=== PATIENT | male | born 1955 | race Caucasian/White ===

== ENCOUNTER 2018-08-24 09:58 | Outpatient (REF) | payer MEDICAID, SELFPAY ==
[2018-08-24 21:46] LABS: ALT 38 U/L (12-78); AST 25 U/L (15-37); Alkaline Phosphatase 77 U/L (46-116); Anion Gap 7.7 mmol/L (3-11); BUN 16 mg/dL (7-18); Bilirubin, Total 0.5 mg/dL (0.2-1.0); CO2 28.3 mmol/L (21.0-32.0); CREATININE 0.98 mg/dL (0.70-1.30); Calcium 9.5 mg/dL (8.5-10.1); Chloride 107 mmol/L (98-107); Cholesterol 226 mg/dL (50-200); Glucose 95 mg/dL (70-100); HDL Cholesterol 60 mg/dL (40-60); LDL CHOLESTEROL 135 mg/dL (<100); Potassium 4.1 mmol/L (3.5-5.1); Sodium 143 mmol/L (136-145); Total Protein 7.1 g/dL (6.4-8.2); Triglyceride 147 mg/dL (30-150)
== END 2018-08-24 10:18 ==
LOC: NCHCN 09:58
PROVIDERS: PCP Physician Assistant Medical; Visit Provider Physician Assistant Medical
DX: E78.5 Hyperlipidemia, unspecified (principal); I10 Essential (primary) hypertension
CPT/HCPCS: 80053; 80061; 83721

== ENCOUNTER 2018-12-04 08:33 | Outpatient (REF) | payer MEDICAID, SELFPAY ==
[2018-12-04 22:16] LABS: ALT 35 U/L (12-78); AST 22 U/L (15-37); Albumin 4.2 g/dL (3.4-5.0); Alkaline Phosphatase 79 U/L (46-116); Anion Gap 11.1 mmol/L (3-11); BUN 16 mg/dL (7-18); Bilirubin, Total 0.5 mg/dL (0.2-1.0); CO2 24.9 mmol/L (21.0-32.0); CREATININE 0.87 mg/dL (0.70-1.30); Calcium 9.3 mg/dL (8.5-10.1); Calculated LDL 115 mg/dL; Chloride 107 mmol/L (98-107); Cholesterol 194 mg/dL (50-200); Glucose 97 mg/dL (70-100); HDL Cholesterol 58 mg/dL (40-60); Potassium 4.4 mmol/L (3.5-5.1); Sodium 143 mmol/L (136-145); Total Protein 7.4 g/dL (6.4-8.2); Triglyceride 109 mg/dL (30-150)
== END 2018-12-04 08:53 ==
LOC: NCHCN 08:33
PROVIDERS: PCP Physician Assistant Medical; Visit Provider Physician Assistant Medical
DX: E78.5 Hyperlipidemia, unspecified (principal)
CPT/HCPCS: 80053; 80061; 83721

== ENCOUNTER 2019-04-09 08:54 | Outpatient (REF) | payer MEDICAID, SELFPAY ==
[2019-04-09 22:14] LABS: Calculated LDL 116 mg/dL; Cholesterol 201 mg/dL (<200); HDL Cholesterol 58 mg/dL (40-60); Triglyceride 139 mg/dL (<150)
== END 2019-04-09 09:14 ==
LOC: NCHCN 08:54
PROVIDERS: PCP Physician Assistant Medical; Visit Provider Physician Assistant Medical
DX: E78.5 Hyperlipidemia, unspecified (principal)
CPT/HCPCS: 80061

== ENCOUNTER 2020-01-04 09:43 | Outpatient (REF) | payer MEDICAID, SELFPAY ==
[2020-01-05 00:33] LABS: ALT 34 U/L (16-63); AST 20 U/L (15-37); Albumin 4.1 g/dL (3.4-5.0); Alkaline Phosphatase 71 U/L (46-116); Anion Gap 16.1 mmol/L (3-11); BUN 15 mg/dL (7-18); Bilirubin, Total 0.6 mg/dL (0.2-1.0); CO2 20.9 mmol/L (21.0-32.0); CREATININE 0.91 mg/dL (0.70-1.30); Calcium 9.7 mg/dL (8.5-10.1); Calculated LDL 132 mg/dL (<100); Chloride 103 mmol/L (98-107); Cholesterol 213 mg/dL (<200); Glucose 87 mg/dL (74-106); HDL Cholesterol 58 mg/dL (40-60); Potassium 4.3 mmol/L (3.5-5.1); Sodium 140 mmol/L (136-145); Total Protein 7.3 g/dL (6.4-8.2); Triglyceride 117 mg/dL (<150)
== END 2020-01-04 10:03 ==
LOC: NCHCN 09:43
PROVIDERS: PCP Physician Assistant Medical; Visit Provider Physician Assistant Medical
DX: I10 Essential (primary) hypertension (principal); E78.5 Hyperlipidemia, unspecified
CPT/HCPCS: 80053; 80061

== ENCOUNTER 2020-01-16 15:59 | Outpatient (REF) | payer MEDICAID, SELFPAY | END 2020-01-16 16:19 | LOC: NCHCN 15:59 | PROVIDERS: PCP Physician Assistant Medical; Visit Provider Physician Assistant Medical | DX: R10.2 Pelvic and perineal pain (principal) | CPT/HCPCS: 87086 ==

== ENCOUNTER 2021-01-20 10:58 | Outpatient (REF) | payer MEDICAID, SELFPAY ==
[2021-01-20 19:20] LABS: ALT 37 U/L (16-63); AST 25 U/L (15-37); Albumin 4.2 g/dL (3.4-5.0); Alkaline Phosphatase 84 U/L (46-116); Anion Gap 7.4 mmol/L (3-11); BUN 12 mg/dL (7-18); Bilirubin, Total 0.5 mg/dL (0.2-1.0); CO2 29.6 mmol/L (21.0-32.0); CREATININE 1.1 mg/dL (0.70-1.30); Calcium 9.7 mg/dL (8.5-10.1); Calculated LDL 147 mg/dL (<100); Chloride 104 mmol/L (98-107); Cholesterol 237 mg/dL (<200); Glucose 96 mg/dL (74-106); HDL Cholesterol 59 mg/dL (40-60); Potassium 4.8 mmol/L (3.5-5.1); Sodium 141 mmol/L (136-145); Total Protein 7.6 g/dL (6.4-8.2); Triglyceride 159 mg/dL (<150)
== END 2021-01-20 10:59 | disposition home or self-care (01) ==
LOC: NCHCN 10:58
PROVIDERS: PCP Physician Assistant Medical; Visit Provider Physician Assistant Medical
DX: I10 Essential (primary) hypertension (principal); E78.5 Hyperlipidemia, unspecified
CPT/HCPCS: 80053; 80061

== ENCOUNTER 2021-04-20 19:10 | Outpatient (REF) | payer MEDICAID, SELFPAY ==
[2021-04-20 19:07] LABS: ALT 38 U/L (16-63); AST 24 U/L (15-37); Albumin 4.1 g/dL (3.4-5.0); Alkaline Phosphatase 76 U/L (46-116); Anion Gap 10.2 mmol/L (3-11); BUN 20 mg/dL (7-18); Bilirubin, Total 0.4 mg/dL (0.2-1.0); CO2 25.8 mmol/L (21.0-32.0); Calcium 9.4 mg/dL (8.5-10.1); Calculated LDL 107 mg/dL (<100); Chloride 105 mmol/L (98-107); Cholesterol 192 mg/dL (<200); Glucose 93 mg/dL (74-106); HDL Cholesterol 67 mg/dL (40-60); Potassium 4.1 mmol/L (3.5-5.1); Sodium 141 mmol/L (136-145); Total Protein 7.5 g/dL (6.4-8.2); Triglyceride 91 mg/dL (<150)
== END 2021-04-20 19:11 | disposition home or self-care (01) ==
LOC: NCHCN 19:10
PROVIDERS: PCP Physician Assistant Medical; Visit Provider Physician Assistant Medical
DX: E78.5 Hyperlipidemia, unspecified (principal); Z00.8 Encounter for other general examination
CPT/HCPCS: 80053; 80061

== ENCOUNTER 2022-07-14 16:12 | Outpatient (REF) | payer MEDICARE, MEDICAID, SELFPAY ==
[2022-07-14 15:17] LABS: ALT 36 U/L (16-63); AST 21 U/L (15-37); Albumin 3.9 g/dL (3.4-5.0); Alkaline Phosphatase 94 U/L (46-116); Anion Gap 8.5 mmol/L (3-11); BUN 19 mg/dL (7-18); Bilirubin, Total 0.2 mg/dL (0.2-1.0); CO2 27.5 mmol/L (21.0-32.0); Calculated LDL 124 mg/dL (<100); Chloride 110 mmol/L (98-107); Cholesterol 212 mg/dL (<200); Estimated GFR 83.52 (mL/min/1.73m2); Glucose 92 mg/dL (74-106); HDL Cholesterol 58 mg/dL (40-60); Potassium 4.5 mmol/L (3.5-5.1); Sodium 146 mmol/L (136-145); Total Protein 7.6 g/dL (6.4-8.2); Triglyceride 154 mg/dL (<150)
== END 2022-07-14 16:13 | disposition home or self-care (01) ==
LOC: NCHCN 16:12
PROVIDERS: PCP Physician Assistant Medical; Visit Provider Family Medicine
DX: E78.5 Hyperlipidemia, unspecified (principal)
CPT/HCPCS: 80053; 80061

== ENCOUNTER 2023-02-15 11:49 | Outpatient (REF) | payer MEDICARE, SELFPAY ==
[2023-02-15 16:01] LABS: ALT 45 U/L (16-63); AST 28 U/L (15-37); Albumin 3.8 g/dL (3.4-5.0); Alkaline Phosphatase 78 U/L (46-116); Anion Gap 7.7 mmol/L (3-11); BUN 19 mg/dL (7-18); Bilirubin, Total 0.5 mg/dL (0.2-1.0); CO2 26.3 mmol/L (21.0-32.0); Calcium 9.5 mg/dL (8.5-10.1); Calculated LDL 81 mg/dL (<100); Chloride 106 mmol/L (98-107); Cholesterol 181 mg/dL (<200); Estimated GFR 83.01 (mL/min/1.73m2); Glucose 106 mg/dL (74-106); HDL Cholesterol 75 mg/dL (40-60); Sodium 140 mmol/L (136-145); Total Protein 7.8 g/dL (6.4-8.2); Triglyceride 126 mg/dL (<150)
== END 2023-02-15 11:50 | disposition home or self-care (01) ==
LOC: NCHCN 11:49
PROVIDERS: PCP Physician Assistant Medical; Visit Provider Physician Assistant Medical
DX: E78.5 Hyperlipidemia, unspecified (principal)
CPT/HCPCS: 80053; 80061

== ENCOUNTER 2024-04-16 11:41 | Outpatient (REF) | payer MEDICARE, SELFPAY ==
--- OUTSIDE RECORDS SUMMARY | 2024-04-16 11:43 | XMS_ITS | Referral Summary ---
Author Organization [facility] Address [address] [place] [address] Care Team Providers Care Entry Level Account Manager Name Role Phone Mickie Byrne PA-C Primary Care Provider + Social History Tobacco Use Types Packs/Day Years Used Date Smoking Tobacco: Never Assessed Interpersonal Safety Answer Date Record ed Physically Hurt Never 12/16/2019 Verbally Threaten Not on file 12/16/2019 Sex and Gender Information Value Date Recorded Sex Assigned at Not on file Legal Sex Male 18:50 EST Gender Identity Not on file Sexual Orientation Not on file Plan of Treatment Not on file Care Teams Entry Level Account Manager Relationship Specialty Start Date End Date Mickie Byrne PA-C [address] [place] [address] PCP - General 09/02/17
--- OUTSIDE RECORDS SUMMARY | 2024-04-16 11:43 | XMS_ITS | Encounter Summary ---
Author Organization [facility] Address [facility] [place] [address] Care Team Providers Care Printing Estimator Name Role Phone None Primary Care Provider Unavailabl e Encounter Details Date Type Department Care Team (Late st Contact Info) Description 11/19/2020 Telephone Dermatology at [facility] [address] [place] [address] Rohan Osborne MD [facility] [address] [place] [address] Social History Tobacco Use Types Packs/Day Years Used Date Smoking Tobacco: Every Day Cigarettes Smokeless Tobacco: Never Sex and Gender Information Value Date Recorded Sex Assigned at Not on file Gender Identity Not on file Sexual Orientation Not on file documented as of this encounter Miscellaneous Notes * Telephone Encounter - Em SmithMANDY - 11/19/2020 2:15 PM EDTSummary: Pathology results. Spoke with patient regarding his biopsy results. Per Dr. Rider the lesion on his ear showed a BCC. Discussed BCCs with patient. Discussed with patient Dr. Rider's recommendations for treatment. Iexplained EDC and Mohs procedures in detail for the patient. He had no questions regarding either. He prefers to do the EDC. Will send message to glue mounter operator to schedule procedure with Dr. Rider or one of his colleagues. Discussed the pathology of the right cheek . 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 No further treatment is needed. 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 He understands no further treatment is needed. * Telephone Encounter - Anny Estrella - 11/19/2020 1:56 PM EDT Uli Barone is returning your call, best number to reach the patient back is [phone]. documented in this encounter Plan of Treatment Not on file documented as of this encounter Visit Diagnoses Not on filedocumented in this encounter Care Teams Printing Estimator Relationship Specialty Start Date End Date None None PCP - General 01/10/20 documented as of this encounter
--- OUTSIDE RECORDS SUMMARY | 2024-04-16 11:43 | XMS_ITS | Encounter Summary ---
Author Organization [facility] Address [address] [place] [address] Care Team Providers Care Community Outreach Worker Name Role Phone Unknown, Provider Primary Care Provider Unava ilable Encounter Details Date Type Department Care Team (Latest Contact Info) Description 08/30/2017 7:39 EDT - 08/30/2017 23:59 EDT Hospital Encounter [address] [address] Unknown, ProviderMD Discharge Disposition: Home or Self Care Social History Tobacco Use Types Packs/Day Years Used Date Smoking Tobacco: Never Assessed Sex and Gender Information Value Date Recorded Sex Assigned at Not on file Legal Sex Male 18:50 EST Gender Identity Not on file Sexual Orientation Not on file documented as of this encounter Discharge Disposition Disposition Code Departure Means Destination Home or Self Long Term documented in this encounter Plan of Treatment Not on file documented as of this encounter Visit Diagnoses Not on filedocumented in this encounter Care Teams Community Outreach Worker Relationship Specialty Start Date End Date Unknown, Provider, PCP - General 05/31/17 09/01/17 documented as of this encounter
--- OUTSIDE RECORDS SUMMARY | 2024-04-16 11:43 | XMS_ITS | Clinical Summary ---
Author Organization [facility] Address [address] [place] [address] Care Team Providers Care Mold Dresser Name Role Phone Mickie Byrne PA-C Primary [...] Orientation Not on file Plan of Treatment Health Maintenance Due Date Last Done Comments Hepatitis C Screen 1955 Fall Risk Screening 2022 COVID-19 Vaccine (2023- season) 2024 RSV Immunization ( o r 60+ Years) (1 - 1-dose 75+ series) 02/14/2032 Care Teams Mold Dresser Relationship Specialty Start Date End Date Mickie Byrne PA-C [address] [place] [phone] PCP - General 09/02/17
--- OUTSIDE RECORDS SUMMARY | 2024-04-16 11:43 | XMS_ITS | Encounter Summary ---
Author Organization [facility] Address [address] [place] [address] Care Team Providers Care Integration Aide Name Role Phone Unknown, Provider Primary Care Provider Unava ilable Encounter Details Date Type Department Care Team (Late st Contact Info) Description 04/06/2010 Results Only [facility] Laboratory Services - [facility] ([facility] [address], [place] [id number] Gloria Gómez MD [facility] [address] [place] [address] Social History Tobacco Use Types Packs/Day Years Used Date Smoking Tobacco: Never Assessed Sex and Gender Information Value Date Recorded Sex Assigned at Not on file Legal Sex Male 18:50 EST Gender Identity Not on file Sexual Orientation Not on file documented as of this encounter Plan of Treatment Not on file documented as of this encounter Procedures Procedure Name Priority Date/Time Associated Diagnosis Comments SURGICAL PATHOLOGY Routine 04/06/2010 0:00 EST documented in this encounter Results * SURGICAL PATHOLOGY (04/06/2010 0:00 EST) Pathology Report: SURGICAL PATHOLOGY REPORT ? Reports generated via electronic interface contain original data; ? however they are lacking the format of the original report. ? Caution should be taken when reading/interpreti ng unformatted reports. ? Name: ? PABLO, STARLA R ? Accession #: ? [id number] ? : ? 1955 (Age: 55) ??M ? Collect Date: ? 04/06/2010 ? Location: ? [facility] ? Receive Date: ? 04/07/2010 ? Provider: GLORIA READY MD ? Copy to: ? Final Pathologic Diagnosis: ? Skin of forearm, left anterior, punch biopsy: ? 1. ?Basal cell carcinoma, superficial and nodular types. ? - Lesion extends to peripheral edges of biopsy specimen. ? Microscopic Description: ? Emanating from the epidermis and present within the dermis are irregularly shaped islands of atypical basal cells. The basal cells have scant cytoplasm and round dark nuclei. ??Mitotic figures and apoptotic bodies are evident. ??The ? nuclei at the periphery of the islands have a palisaded arrangement. ??The ? islands are associated with a fibromyxoid stroma and there is cleft formation ?? between some of the islands and stroma. ??(Dr. Nieto)/[facility] ? Document reviewed and electronically signed by: ? LUKAS NIETO MD ? Report ??Date: 04/08/2010 12:51 ? By the signature above, the attending physician certifies that he/she has ? personally conducted a gross and/or microscopic examination of the described ? specimens and rendered or confirmed the above diagnosis. ? Specimen(s) Received: ? L ant forearm 5.0 mm punch biopsy of non-healing scab/lesion ? Clinical History: ? 1.5 x 1.0 cm scabbed non-healing raised lesion in high sun-exposed man ? Gross Description: ? Received in formalin labelled Pablo, Starla and L ant forearm is a ?? punch biopsy of yost to brown and crusted skin measuring 0.5 cm in diameter and ?? 0.5 cm in thickness. ??The specimen is bisected and submitted entirely in one ? cassette. (A. Jostin)/mpl ? End of Report ? [facility] 04/06/2010 04/07/2010 8:3 6 EST us Gloria Gómez MD PATHOLOGY ORDERABLES Final Resul t [facility] [address] [place] [address] documented in this encounter Visit Diagnoses Not on filedocumented in this encounter Care Teams Integration Aide Relationship Specialty Start Date End Date Unknown, Provider, PCP - General 04/07/10 04/07/10 documented as of this encounter
--- OUTSIDE RECORDS SUMMARY | 2024-04-16 11:43 | XMS_ITS | Encounter Summary ---
Author Organization [facility] Address [address] [place] [address] Care Team Providers Care Counselor Aid Name Role Phone Unknown, Provider Primary Care Provider Unava ilable Encounter Details Date Type Department Care Team (Late st Contact Info) Description 08/30/2017 Results Only [facility] [phone] Kimberley Garvin PA-C [address] [place] [address] Social History Tobacco Use Types Packs/Day Years [...] Date/Time Associated Diagnosis Comments SURGICAL PATHOLOGY Routine 08/30/2017 16 :05 EDT documented in this encounter Results * SURGICAL PATHOLOGY (08/30/2017 16:05 EDT) Pathology Report: SURGICAL PATHOLOGY REPORT Reports generated via electronic interface contain original data; however they are lacking the format of the original report. Caution should be taken when reading/interpreting unformatted reports. Name: ? STARLA SHAH ? Accession #: ? [id number] ? : ? 1955 (Age: 62) ??M ? Collect Date: ? 08/30/2017 ? Location: ? [facility] ? Receive Date: ? 08/31/2017 ? Provider: KIMBERLEY GARVIN PAC Copy to: ? Final Pathologic Diagnosis: SKIN OF MATA, RIGHT ANTERIOR LATERAL, PUNCH BIOPSY: - Subacute spongiotic dermatitis. See comment. Comment: The biopsy primarily shows features of spongiotic (eczematous) dermatitis with epidermal hyperplasia and scale formation. There are areas of erythrocyte extravasation but no evidence of vasculitis. Although the extravasation raises the possibility of purpuric dermatitis, the epidermal changes are more characteristic of an eczematous process. (Dr. Reyna)/jds Microscopic Description: Sections consist of a bisected punch biopsy of skin to the deep reticular dermis. The stratum corneum has hyperkeratosis and parakeratosis. The epidermis is acanthotic with an irregular rete ridge pattern. There are foci of spongiosis with lymphomononuclear cell exocytosis. The superficial dermis has a patchy perivascular lymphomononuclear infiltrate. The vessels have reactive changes and there are areas of erythrocyte extravasation. No fibrinoid mural necrosis or thrombus formation is evident. Deeper sections have similar features. (Dr. Reyna)/jds Document reviewed and electronically signed by: GHASSAN REYNA MD Report ??Date: 09/01/2017 16:39 By the signature above, the attending physician certifies that he/she has personally conducted a gross and/or microscopic examination of the described specimens and rendered or confirmed the above diagnosis. Specimen(s) Received: 5.0 mm punch biopsy Rt anterior lateral mata Clinical History: Blanchable red confluent macules scattered on bilateral legs and ankles; no drainahge Gross Description: ? Received in formalin labelled with proper patient identification (initials L, R) and R anterior lateral mata is a punch biopsy of yost-white skin (0.5 cm in diameter and 0.3 cm in thickness). The margins are inked blue. The specimen is bisected and entirely submitted in 1. JUANCARLOS Garduno ([facility]) 08/31/2017 4:25 PM End of Report [facility] 08/30/2017 16:0 5 EDT 08/31/2017 16:05 EDT us Kimberley Garvin PA-C PATHOLOGY ORDERABLES Irlanda ruby Result [facility] [address] [place] [address] documented in this encounter Visit Diagnoses Not on filedocumented in this encounter Care Teams Counselor Aid Relationship Specialty Start Date End Date Unknown, Provider, PCP - General 05/31/17 09/01/17 documented as of this encounter
--- OUTSIDE RECORDS SUMMARY | 2024-04-16 11:43 | XMS_ITS | Encounter Summary ---
Author Organization [facility] Address [address] [place] [address] Care Team Providers Care Groover Operator Name Role Phone Darling Gómez MD Primary Care Provider [phone] Encounter Details Date Type Department Care Team (Late st Contact Info) Description 04/04/2017 Results Only [facility] [phone] Brooks Lopez, [address] [place], [place] [address] Social History Tobacco Use Types Packs/Day Years [...] Date/Time Associated Diagnosis Comments SURGICAL PATHOLOGY Routine 04/04/2017 9:40 EST documented in this encounter Results * SURGICAL PATHOLOGY (04/04/2017 9:40 EST) Pathology Report: SURGICAL PATHOLOGY REPORT Reports generated via electronic interface contain original data; however they are lacking the format of the original report. Caution should be taken when reading/interpret ing unformatted reports. Name: ? STARLA SHAH ? Accession #: ? [id number] ? : ? 1955 (Age: 62) ??M ? Collect Date: ? 04/04/2017 ? Location: ? [facility] ? Receive Date: ? 04/05/2017 ? Provider: BROOKS LOPEZ DO Copy to: LESLEY ALONZO PA-C ? Final Pathologic Diagnosis: A. ??SKIN OF FACE, LEFT BUDDHIST, SHAVE BIOPSY: - Basal cell carcinoma, nodular type, involving the biopsy base. B. ??SKIN OF EAR, LEFT MID HELIX, SHAVE BIOPSY: - Basal cell carcinoma, nodular type, involving the biopsy base. ?? Document reviewed and electronically signed by: ELENITA BLEDSOE MD Report ??Date: 04/06/2017 12:43 By the signature above, the attending physician certifies that he/she has personally conducted a gross and/or microscopic examination of the described specimens and rendered or confirmed the above diagnosis. Specimen(s) Received: A. ??Left rastafari B. ??Left mid helix Clinical History: Enlarging, nonhealing skin lesion(s); clinical diagnosis code: ??D49.2 Gross Description: A. ?Received in formalin labelled with proper patient identification (initials L, R) and left rastafari is a 0.8 x 0.8 x 0.2 cm circular shave of yost-roy to yellow skin. The margin is inked blue. The tissue is trisected and entirely submitted in A1. B. ?Received in formalin labelled with proper patient identification (initials L, R) and left mid helix is a 0.7 x 0.5 x 0.1 cm circular shave of yost-roy skin. The margin is inked blue. The specimen is bisected and entirely submitted in B1. JUANCARLOS Garduno ([facility]) 04/05/2017 9:56 AM End of Report [facility] 04/04/2017 9:40 EST 04/05/2017 9:40 EST us Brooks Lopez DO PATHOLOGY ORDERABLES Fi nal Result [facility] [address] [phone] documented in this encounter Visit Diagnoses Not on filedocumented in this encounter Care Teams Groover Operator Relationship Specialty Start Date End Date Darling Gómez MD PCP - General 03/22/14 04/05/17 documented as of this encounter
--- OUTSIDE RECORDS SUMMARY | 2024-04-16 11:43 | XMS_ITS | Encounter Summary ---
Author Organization [facility] Address [address] [place] [address] Care Team Providers Care Tier In Name Role Phone Mickie Byrne PA-C Primary Care Provider + Encounter Details Date Type Department Care Team (Latest Contact Info) Description 05/26/2017 7:47 EST - 05/26/2017 23:59 EST Hospital Encounter [address] [address] Unknown, Provider, MD Discharge Disposition: Home or Self Care Social History Tobacco Use Types Packs/Day Years Used Date Smoking Tobacco: Never Assessed Sex and Gender Information Value Date Recorded Sex Assigned at Not on file Legal Sex Male 18:50 EST Gender Identity Not on file Sexual Orientation Not on file documented as of this encounter Discharge Disposition Disposition Code Departure Means Destination Home or Self Half-Way documented in this encounter Plan of Treatment Not on file documented as of this encounter Visit Diagnoses Not on filedocumented in this encounter Care Teams Tier In Relationship Specialty Start Date End Date Mickie Byrne PA-C [address] [place] [phone] PCP - General 04/06/17 05/30/17 documented as of this encounter
--- OUTSIDE RECORDS SUMMARY | 2024-04-16 11:43 | XMS_ITS | Clinical Summary ---
Author Organization [facility] Address [facility] [place] [address] Care Team Providers Care Rehabilitation Supervisor Name Role Phone None Primary Care Provider Unavailabl e Allergies No known active allergies Medications Medication Sig Dispensed Refills Start Date End Date Status lisinopril (PRINIVIL;ZESTRIL) 20 mg Tablet 10/08/2017 Active cetirizine (ZYRTEC) 10 mg Tablet 10/11/2017 Active CHANTIX STARTING MONTH BOX 0.5 mg (11)- 1 mg (42) Tablets, Dose Pack 05/31/2018 Active augmented betamethasone dipropionate (DIPROLENE) 0.05 % OintmentIndications:Nu mmular dermatitis Apply to itchy/affected areas on the body twice daily for 2 weeks. Then apply twice daily on weekends only (Sat-Sun) 50 g 3 06/01/2018 Active mupirocin (BACTROBAN) 2 % Ointment Apply to crusty areas on the hands and lower legs twice daily. 22 g 2 06/01/2018 Active triamcinolone (KENALOG) 0.1 % OintmentIndications:Ec zema, unspecified type apply thin layer topically to itchy/affected areas on the body twice daily for 14 days, take 7 days off, repeat as needed 80 g 1 04/15/2020 Active Active Problems No known active problems Social History Tobacco Use Types Packs/Day Years Used Date Smoking Tobacco: Every Day Cigarettes Smokeless Tobacco: Never Sex and Gender Information Value Date Recorded Sex Assigned at Not on file Gender Identity Not on file Sexual Orientation Not on file Last Filed Vital Signs Vital Sign Reading Time Taken Comments Blood Pressure 153/70 07/01/2020 10:16 AM EST Pulse 76 07/01/2020 10:16 AM EST Temperature - - Respiratory Rate - - Oxygen Saturation - - Inhaled Oxygen Concentration - - Weight - - Height - - Body Mass Index - - Plan of Treatment Health Maintenance Due Date Last Done Comments CT Colonography 1955 Colonoscopy 1955 Colorectal Cancer Screening 1955 FIT DNA 1955 FIT 1955 Sigmoidoscopy (10 year) with FIT yearly 1955 Sigmoidoscopy 1955 Hepatitis C Screening 1975 Lipid Screening 1975 Tetanus/Diphtheria/Pertussis Vaccines (1 - Tdap) 02/13 Zoster vaccine (1 of 2) 2007 Advance Directive 02/14/2012 Pneumoccocal Vaccine: 65+ (1 of 1 - PCV) 2022 Covid-19 Vaccine (1 - 2023- season) 2024 Influenza (Flu) vaccine (1 o f 1 - Influenza standard series) 01/15/2024 Care Teams Rehabilitation Supervisor Relationship Specialty Start Date End Date None None PCP - General 01/10/20
--- OUTSIDE RECORDS SUMMARY | 2024-04-16 11:43 | XMS_ITS | Encounter Summary ---
Author Organization [facility] Address [address] [place] [address] Care Team Providers Care Birdcage Assembler Name Role Phone Sadie Alonzojoseantelmo Sandra NOVA Primary Care Provider + Encounter Details Date Type Department Care Team (Late st Contact Info) Description 05/26/2017 Results Only [facility]- [facility] [phone] Brooks Lopez, [address] [place], [place] [id number] Social History Tobacco Use Types Packs/Day Years [...] Date/Time Associated Diagnosis Comments SURGICAL PATHOLOGY Routine 05/26/2017 16 :49 EST documented in this encounter Results * SURGICAL PATHOLOGY (05/26/2017 16:49 EST) Pathology Report: SURGICAL PATHOLOGY REPORT Reports generated via electronic interface contain original data; however they are lacking the format of the original report. Caution should be taken when reading/interpret ing unformatted reports. Name: ? STARLA SHAH ? Accession #: ? [id number] ? : ? 1955 (Age: 62) ??M ? Collect Date: ? 05/26/2017 ? Location: ? [facility] ? Receive Date: ? 05/27/2017 ? Provider: BROOKS LOPEZ DO Copy to: LESLEY ALONZO PA-C ? Final Pathologic Diagnosis: A. ??SKIN OF HOLINESS, LEFT, EXCISION: - Basal cell carcinoma, superficial multicentric type. - Margins negative for basal cell carcinoma. - Epidermal reparative change and dermal scar, consistent with biopsy site. B. ??SKIN OF EAR, LEFT MID HELIX, EXCISION: - Epidermal reparative change and dermal scar, consistent with biopsy site. - No residual basal cell carcinoma identified. ?? Document reviewed and electronically signed by: GHASSAN SERNA MD Report ??Date: 05/31/2017 19:55 By the signature above, the attending physician certifies that he/she has personally conducted a gross and/or microscopic examination of the described specimens and rendered or confirmed the above diagnosis. Specimen(s) Received: A. ??Left restorationism, 12 o'clock blank, 3 o'clock white, 6 o'clock blue, 9 o'clock black B. ??Left ear mid helix, 12 o'clock, 3 o'clock white, 6 o'clock blue, 9 o'clock black Clinical History: BCC; clinical diagnosis code: ??C44.319 Intraoperative Interpretation: A. ??SKIN, LEFT HOLINESS, EXCISION: - Residual basal cell carcinoma, completely excised. ??All surgical margins negative for tumor. - FSA1. ??12 o'clock margin (en face): ??Negative for tumor. - FSA2. ??6 o'clock margin (en face): ??Negative for tumor. - FSA3. ??3 o'clock tip margin (en face): ??Negative for tumor. - FSA4. ??9 o'clock tip margin (en face): ??Negative for tumor. - FSA5-FSA6: ??Cross sections 6-12 o'clock: ??Residual basal cell carcinoma, completely excised. - FSA7-FSA9: ??Cross sections 6-12 o'clock: ??Biopsy site, negative for tumor. - Reported to Dr. Lopez in person at approximately 1:10 PM. Patient identified prior to in verbal report. Procedure performed at [facility]. Staining of frozen section adequate. Dr. Amarilis Miller 05/26/2017 B. ??SKIN, LEFT MID HELIX EAR, EXCISION: ?? - Biopsy site. ??All margins negative for tumor. - FSB1. ??12 o'clock tip margin (en face): ??Negative for tumor. - FSB2. ??6 o'clock tip margin (en face): ??Negative for tumor. - FSB3, FSB5. ??Cross section 3-9 o'clock margin: ??Negative for tumor. - FSB4. ??Cross section 3-9 o'clock margin: ??Biopsy site. Negative for tumor - Reported to Dr. Lopez at approximately 1:25 PM. Patient identified prior to verbal report. Procedure performed at [facility]. Staining of frozen section adequate. Dr. Amarilis Miller 05/26/2017 ? Gross Description: A. ?Received fresh labelled with proper patient identification (initials L, R) and excision left restorationism skin cancer is an unoriented elliptical skin excision (2.6 x 1.2 x 0.2 cm). The specimen is oriented with a white suture at 3 o'clock, blue suture at 6 o'clock, and black suture at 9 o'clock. ? There is a central well-healed scar measuring 1.3 cm. The 3 o'clock aspect is inked green and the 9 o'clock aspect is inked black. The specimen is serially sectioned and submitted entirely for frozen section diagnosis as FSA1-FSA9. The residual tissue submitted as follows: BLOCK OLIVA A1- ??FSA1, 12 o'clock margin, en face A2- ??FSA2, 6 o'clock margin, en face A3- ??FSA3, 3 o'clock tip margin, en face A4- ??FSA4, 9 o'clock tip margin, en face A5-A9- ??FSA5-FSA9, serially sectioned from 3 o'clock to 9 o'clock B. ?Received fresh labelled with proper patient identification (initials L, R) and left mid helix left ear is an oriented elliptical skin excision (1.6 x 0.7 x 0.2 cm). The specimen is oriented with a white suture at 3 o'clock, blue suture at 6 o'clock and black suture at 9 o'clock. ? There is a central well-healed scar measuring 1.0 cm. The 3 o'clock aspect is inked green and the 9 o'clock aspect is inked black. The specimen is serial sectioned and submitted for frozen section diagnosis as FSB1-FSB5. The residual tissue is submitted as follows: BLOCK OLIVA B1- ??FSB1, 12 o'clock margin, en face B2- ??FSB2, 6 o'clock margin, en face B3-B5- ??FSB3-FSB5, serially sectioned from 12 o'clock to 6 o'clock JUANCARLOS Ragsdale (ASCP) 05/30/2017 1:51 PM End of Report [facility] 05/26/2017 16:4 9 EST 05/27/2017 16:49 EST us Brooks Lopez DO PATHOLOGY ORDERABLES Fi nal Result Performing Organization Address City/State/[facility] Co de Phone Number [facility] [address] [place] [address] documented in this encounter Visit Diagnoses Not on filedocumented in this encounter Care Teams Birdcage Assembler Relationship Specialty Start Date End Date Lesley Alonzo PA-C [address] [place] [address] PCP - General 04/06/17 05/30/17 documented as of this encounter
--- OUTSIDE RECORDS SUMMARY | 2024-04-16 11:43 | XMS_ITS | Encounter Summary ---
Author Organization [facility] Address [address] [place] [address] Care Team Providers Care Plumbing Assembler Installer Name Role Phone Gloria Gómez MD Primary Care Provider [phone] Encounter Details Date Type Department Care Team (Late st Contact Info) Description 04/15/2010 Results Only [facility] - [facility] ([facility]) [address] [place], [place] [id number] Gloria Gómez MD [facility] [address] [place], [place] [address] Social History Tobacco Use Types Packs/Day Years [...] Date/Time Associated Diagnosis Comments SURGICAL PATHOLOGY Routine 04/15/2010 0:00 EST documented in this encounter Results * SURGICAL PATHOLOGY (04/15/2010 0:00 EST) Pathology Report: SURGICAL PATHOLOGY REPORT ? Reports generated via electronic interface contain original data; ? however they are lacking the format of the original report. ? Caution should be taken when reading/interpreti ng unformatted reports. ? Name: ? PABLO, STARLA R ? Accession #: ? [id number] ? : ? 1955 (Age: 55) ??M ? Collect Date: ? 04/15/2010 ? Location: ? [facility] ? Receive Date: ? 04/16/2010 ? Provider: GLORIA READY MD ? Copy to: ? Final Pathologic Diagnosis: ? Skin of forearm, left, excision: ? 1. ?Residual basal cell carcinoma, superficial and nodular types. ? - Margins of excision negative. ? 2. ?? Epidermal reparative change and dermal scar. ? Document reviewed and electronically signed by: ? LUKAS CHRISTENSEN MD ? Report ??Date: 04/20/2010 13:32 ? By the signature above, the attending physician certifies that he/she has ? personally conducted a gross and/or microscopic examination of the described ? specimens and rendered or confirmed the above diagnosis. ? Specimen(s) Received: ? Excisional biopsy L forearm ??stitch in superior portion of specimen ? Clinical History: ? Biopsy proven BCC; measures 1.5 x 2.0 cm +/- ? Gross Description: ? Received in formalin labelled Pablo, Starla and L forearm is an ? oriented elliptical excision of yost skin with a suture at one tip, designating ?? the superior aspect, which is arbitrarily designated as 12 o'clock. ??The ? specimen measures 2.4 cm from 12 o'clock to 6 o'clock, 1.4 cm from 3 o'clock to 9 o'clock, and is excised to a depth of 0.3 cm. ??There is a central brown, ? crusted area measuring 0.7 x 0.5 x 0.1 cm. ??The 3 o'clock aspect is inked blue ?? and the 9 o'clock aspect is inked black. ??The specimen is serially sectioned ? from 6 o'clock to 12 o'clock and submitted entirely as follows: ? BLOCK OLIVA ? A1 ?6 o'clock tip, reverse en face ? A2-A4 ?Central sections ? A5 ?12 o'clock tip, reverse en face ? (A. Frankel)/ljn ? End of Report ? [facility] 04/15/2010 04/16/2010 8:4 0 EST us Gloria Gómez MD PATHOLOGY ORDERABLES Final Resul t Performing Organization Address City/State/[facility] Co de Phone Number [facility] [address] [place] [address] documented in this encounter Visit Diagnoses Not on filedocumented in this encounter Care Teams Plumbing Assembler Installer Relationship Specialty Start Date End Date Gloria Gómez MD [facility] [address] [place], [place] [address] PCP - General 04/08/10 03/21/14 documented as of this encounter
--- OUTSIDE RECORDS SUMMARY | 2024-04-16 11:43 | XMS_ITS | Encounter Summary ---
Author Organization [facility] Address [address] [place] [address] Care Team Providers Care Fan Runner Name Role Phone Darling Gómez MD Primary Care Provider Encounter Details Date Type Department Care Team (Latest Contact Info) Description 03/18/2014 9:07 EST - 03/18/2014 23:59 EST Hospital Encounter [address] [address] Unknown, Provider, MD Discharge Disposition: Home or [...] Code Departure Means Destination Home or Self Usp documented in this encounter Plan of Treatment Not on file documented as of this encounter Visit Diagnoses Not on filedocumented in this encounter Care Teams Fan Runner Relationship Specialty Start Date End Date Darling Gómez MD [facility] [address] [place], [place] [address] PCP - General 04/08/10 03/21/14 documented as of this encounter
--- OUTSIDE RECORDS SUMMARY | 2024-04-16 11:43 | XMS_ITS | Encounter Summary ---
Author Organization [facility] Address [address] [place] [address] Care Team Providers Care Drawer Liner Name Role Phone Dalia Darling PINA Primary Care Provider [phone] Encounter Details Date Type Department Care Team (Late st Contact Info) Description 03/18/2014 Results Only [facility] [phone] Kimberley Garvin PA-C [address] [place] [address] Social History Tobacco Use Types Packs/Day Years [...] Date/Time Associated Diagnosis Comments SURGICAL PATHOLOGY Routine 03/18/2014 16 :47 EST documented in this encounter Results * SURGICAL PATHOLOGY (03/18/2014 16:47 EST) Pathology Report: SURGICAL PATHOLOGY REPORT Reports generated via electronic interface contain original data; however they are lacking the format of the original report. Caution should be taken when reading/interpret ing unformatted reports. Name: ? STARLA SHAH ? Accession #: ? [id number] ? : ? 1955 (Age: 59) ??M ? Collect Date: ? 03/18/2014 ? Location: ? [facility] ? Receive Date: ? 03/19/2014 ? Provider: KIMBERLEY GARVIN PAC Copy to: ? Final Pathologic Diagnosis: SKIN OF AXILLA, RIGHT, PUNCH BIOPSY: - Follicular cyst, infundibular type. ?? Microscopic Description: There is a dermal cyst that is lined by stratified squamous epithelium that matures through a granular layer. ??The cyst is filled with laminated orthokeratin. ??(Dr. Reyna)/jewell Document reviewed and electronically signed by: GHASSAN REYNA MD Report ??Date: 03/20/2014 14:46 By the signature above, the attending physician certifies that he/she has personally conducted a gross and/or microscopic examination of the described specimens and rendered or confirmed the above diagnosis. Specimen(s) Received: Punch bx R axilla 4.0 mm Clinical History: R axilla skin colored, umbilicated raised lesion Gross Description: ? Received in formalin labelled with proper patient identification (initials L, R) and lesion R axilla is a punch biopsy of yost-white skin (0.5 x 0.4 cm in diameter and 0.2 cm in thickness). ??There is an eccentric circular roy-white smooth papule measuring 0.3 x 0.2 x 0.2 cm. ??Bisected and submitted in 1. Opal Parmar 03/20/2014 08:54 AM End of Report [facility] 03/18/2014 16:4 7 EST 03/19/2014 16:47 EST us Kimberley Garvin PA-C PATHOLOGY ORDERABLES Irlanda ruby Result [facility] [address] [place] [address] documented in this encounter Visit Diagnoses Not on filedocumented in this encounter Care Teams Drawer Liner Relationship Specialty Start Date End Date Darling Gómez MD [facility] [address] [place] [address] PCP - General 04/08/10 03/21/14 documented as of this encounter
--- OUTSIDE RECORDS SUMMARY | 2024-04-16 11:43 | XMS_ITS | Encounter Summary ---
Author Organization [facility] Address [address] [place] [address] Care Team Providers Care Tank Cleaner Name Role Phone Darling Gómez MD Primary Care Provider [phone] Encounter Details Date Type Department Care Team (Latest Contact Info) Description 04/05/2017 13:37 EST - 04/05/2017 23:59 EST Hospital Encounter [address] [address] Unknown, Provider, MD Discharge Disposition: Home or [...] Code Departure Means Destination Home or Self Fpc documented in this encounter Plan of Treatment Not on file documented as of this encounter Visit Diagnoses Not on filedocumented in this encounter Care Teams Tank Cleaner Relationship Specialty Start Date End Date Darling Gómez MD PCP - General 03/22/14 04/05/17 documented as of this encounter
--- OUTSIDE RECORDS SUMMARY | 2024-04-16 11:43 | XMS_ITS | Encounter Summary ---
Author Organization [facility] Address [facility] [place] [address] Care Team Providers Care Automated Equipment Engineer Technician Name Role Phone None Primary Care Provider Unavailabl e Reason for Visit * Reason Comments Procedure Encounter Details Date Type Department Care Team (Late st Contact Info) Description 12/10/2020 11:20 AM EDT Office Visit Dermatology at [facility] [address] [place] [address] Rohan Osborne MD [facility] [address] [place] [address] Basal cell carcinoma of right ear Social History Tobacco Use Types Packs/Day Years Used Date Smoking Tobacco: Every Day Cigarettes Smokeless Tobacco: Never Sex and Gender Information Value Date Recorded Sex Assigned at Not on file Gender Identity Not on file Sexual Orientation Not on file documented as of this encounter Progress Notes * Rohan Osborne MD - 12/10/2020 11:20 AM EDT Images from the original note were not included. DEPARTMENT OF DERMATOLOGY Medical Dermatology Clinic Provider: Rohan Osborne MD Patient's preferred name Uli Preferred contact method for results []?myDH [x]?Letter []?Phone Are there any other people with whom we may discuss your care? No ?? PAST MEDICAL HISTORY If no, type N. If yes, type date, location, treatment Melanoma N Dysplastic nevi N SCC N BCC 07/01/2020: left mormonism, recurrent BCC, s/p Mohs (3 stages) - BCC, left cheek, s/p Mohs 10/2019 - Left posterior shoulder, BCC, s/p Mohs 10/2019 -??BCC x 3, left posterior neck, left lateral neck, left lower neck, s/p mohs surgery 07/31/19, Dr. Kiesha Mcdonald Y Other relevant past medical history (i.e. eczema, psoriasis, birthmarks, immunosuppression) ?? FAMILY HISTORY If yes, details Melanoma N NMSC N Other relevant family history N SOCIAL HISTORY Occupation History of Present Illness: Uli Barone is a 65 y.o. year old. Patient returns to clinic today for evaluation and treatment of biopsy proven BCC on the right ear Last visit at [facility] Derm: 11/14/2020 Last visit with this provider: 11/14/2020 Medications: Reviewed in eD-H Allergies: Reviewed in eD-H Skin Examination: Focused skin examination of the right ear was normal with the exception of the findings below Assessment/Plan: Biopsy proven BCC- treatment today with ED&C to right ear Procedure: Destruction of lesion with electrocautery and desiccation. Site: Right ear Post-curettage defect size: 8mm Discussed indications and expectations including risks and benefits. Verbal consent obtained. Skin prep. Local anesthesia: buffered 1% lidocaine with epinephrine. The entire lesion plus a small margin was treated by curettage and electrodesiccation. No complications. Wound dressed. Expectations (including discomfort management) and wound care reviewed. RTC: 5 months for FSE [x]Note routed to nursing secretary []Recall has been placed in scheduling system []Appointment scheduled at checkout Scribe attestation: Isis Arenas LPN has performed the documentation for this encounter in the presence of and acting as a scribe for Rohan Osborne MD I performed the above scribed service and agree with the accuracy of the documentation in this encounter. Reviewed and signed by: Rohan Osborne MD Dermatology [facility] Patient seen and evaluated with staff package wrapper: Mary Hugo MD Dermatology [facility] * Mary Hugo MD - 12/10/2020 11:20 AM EDT I was the supervising physician working with dermatology resident Dr. Osborne in the dermatology clinic during this patient visit. The level of Resident supervision for this patient visit was indirect supervision with direct supervision immediately available. (definition: [facility] Policy Statement on Graduate Medical Education, Supervision of Graduate Medical Trainees) I was immediately available to Dr. Osborne for questions and discussion regarding this visit. I have reviewed the encounternote details and level of service. MARY HUGO MD Staff Physician documented in this encounter Plan of Treatment Not on file documented as of this encounter Visit Diagnoses Diagnosis Basal cell carcinoma of right ear documented in this encounter Care Teams Automated Equipment Engineer Technician Relationship Specialty Start Date End Date None None PCP - General 01/10/20 documented as of this encounter
--- OUTSIDE RECORDS SUMMARY | 2024-04-16 11:44 | XMS_ITS | Encounter Summary ---
Author Organization [facility] Address [facility] [place] [address] Care Team Providers Care Junior Buyer Name Role Phone None Primary Care Provider Unavailabl e Reason for Visit * Reason Comments Skin Check Encounter Details Date Type Department Care Team (Late st Contact Info) Description 11/14/2020 3:20 PM EDT Office Visit Dermatology at [facility] [address] [place] [address] Rohan Osborne MD [facility] [address] [place] [address] Neoplasm of uncertain behavior; Hx of basal cell carcinoma; Multiple benign nevi; Seborrheic keratosis; Harris angioma; Irritant contact dermatitis, unspecified trigger Social History Tobacco Use Types Packs/Day Years Used Date Smoking Tobacco: Every Day Cigarettes Smokeless Tobacco: Never Sex and Gender Information Value Date Recorded Sex Assigned at Not on file Gender Identity Not on file Sexual Orientation Not on file documented as of this encounter Patient Instructions * Patient Instructions* Scott Stinson LPN - 11/14/2020 3:20 PM EDT Treatment and Wound Care Instructions Your treatment today: You have had a shave biopsy of your skin, which is a removal of tissue for examination under a microscope. This wound will heal without stitches. Allow 3-6 weeks for the wound to heal. If bleeding occurs, hold firm pressure against the wound for 15 minutes. If bleeding continues, calls the office or go to your local emergency room. Please allow 1-2 weeks for the biopsy results to return. Your physician or nurse will contact you with the results by phone or letter; follow-up will be discussed at that time. Wound Care Instructions: You will need to keep the dressing placed over the wound dry and intact for 24 hours. Afterwards, perform the following wound care daily: ?? Wash your hands before changing the dressing. ?? Remove the bandage and clean the area with mild soap and water, then gently pat the area dry. ?? Apply a small amount of Vaseline to the area, then cover the wound with a band-aid. Change your dressing daily until the wound is fully healed. ?? A small amount of yellow drainage is part of normal healing. The area might appear as a small depression with redness around the edge of the wound. This is normal. ?? Please contact the office if you notice any of the following signs of infection: increased tenderness, pain, drainage, or redness that becomes hot or hard around the wound. documented in this encounter Progress Notes * Rohan Rider MD - 11/14/2020 3:20 PM EDT Images from the original note were not included. DEPARTMENT OF DERMATOLOGY [facility] Provider: Rohan Rider MD Patient's preferred name Uli Preferred contact method for results []myDH [x]Letter []Phone Are there any other people with whom we may discuss your care? No PAST MEDICAL HISTORY If no, type N. If yes, type date, location, treatment Melanoma N Dysplastic nevi N SCC N BCC 07/01/2020: left presybeterian, recurrent BCC, s/p Mohs (3 stages) - BCC, left cheek, s/p Mohs 10/2019 - Left posterior shoulder, BCC, s/p Mohs 10/2019 -??BCC x 3, left posterior neck, left lateral neck, left lower neck, s/p mohs surgery 07/31/19, Dr. Kiesha Mcdonald Y Other relevant past medical history (i.e. eczema, psoriasis, birthmarks, immunosuppression) FAMILY HISTORY If yes, details Melanoma N NMSC N Other relevant family history N SOCIAL HISTORY Occupation: [employer] History of Present Illness: Uli Barone is a 65 y.o. year old. Patient returns to clinic today for evaluation of FSE with no concerns, most recent Mohs procedure went well. Last visit at [facility] D[facility]: 04/15/2020 Last visit with this provider: 04/15/2020 Medications: Reviewed in eD-H Allergies: Reviewed in eD-H Skin Examination: Full skin examination: Patient asked to undress to their comfort level. Verbalized that the provider's preference is that patient removal all clothing and that the provider will not examine areas patient elects to keep covered. Examination of the scalp, hair, head, face, ears, neck, chest, axillae,abdomen, back, buttocks, and upper and lower extremities. Genitalia was not examined. Assessment/Plan Harris Angiomas - Multiple 0.2-0.4cm bright red, well-demarcated papules on the trunk and extremities. - Discussed benign nature of lesion and provided reassurance - No treatment necessary at this time Irritant Contact Dermatitis - ill defined scaly plaques on the right hand, between the web spaces predominantly. - Advised can continue to use Rx: Triamcinolone 0.1% ointment Apply twice daily??to affected areas of the body??for 14??days, then take 1 week off, repeat as needed. Seborrheic Keratosis - Multiple 0.4-0.6cm brown papules with waxy, stuck-on appearance. Milia-like cysts, comedone-like openings and/or fissuring on dermoscopy. - Etiology discussed - Patient reassured lesions are benign in nature - Explained that these are hereditary, adult onset and acquired. - Can develop anywhere on the body except for palms or soles - Treatment of an asymptomatic seborrheic keratosis is considered a cosmetic procedure and is not covered by insurance. Benign appearing nevi with even pigmentation and well defined margins are noted - Multiple, 0.3-0.5cm, medium-brown, evenly-pigmented macules and papules. All with regular pigment pattern on dermoscopy. No pigmented lesions suspicious for melanoma. - Discussed benign nature of lesion and provided reassurance - No treatment necessary at this time - Observe skin for change in color, size or character. Call if such occur Neoplasm of Uncertain Behavior, r/o BCC - right pinna: 2-3 mm pearly papule I discussed this condition with the patient and explored therapeutic options. I recommended we do ashave biopsy, joint decision made to proceed with skin biopsy for further diagnostic information. Procedure: Skin biopsy by shave technique Location: A. right pinna Discussed indications for procedure and expectations including risks and benefits. Verbal consent obtained. Skin prep with alcohol. Local anesthesia with 1% xylocaine, 1/100,000 epinephrine. A sampleof the lesion was removed by shave technique to the level of the dermis and submitted to Pathology.Hemostasis obtained (AlCl and/or electrocautery). There were no complications; the pt. tolerated the procedure well. The wound was dressed. Post-procedure expectations, wound care and activity restrictions were reviewed. The following photos were obtained with patient consent: Neoplasm of Uncertain Behavior, Sebaceous Gland Hyperplasia vs BCC - Right cheek: 4 mm yellow to pink papule I discussed this condition with the patient and explored therapeutic options. I recommended we do ashave biopsy, joint decision made to proceed with skin biopsy for further diagnostic information. Procedure: Skin biopsy by shave technique Location: B. right cheek Discussed indications for procedure and expectations including risks and benefits. Verbal consent obtained. Skin prep with alcohol. Local anesthesia with 1% xylocaine, 1/100,000 epinephrine. A sampleof the lesion was removed by shave technique to the level of the dermis and submitted to Pathology.Hemostasis obtained (AlCl and/or electrocautery). There were no complications; the pt. tolerated the procedure well. The wound was dressed. Post-procedure expectations, wound care and activity restrictions were reviewed. The following photos were obtained with patient consent: C. Suspect Nevus r/o Amelanotic Melanoma - Right upper back: 3- mm pink papule Procedure: Skin biopsy by shave technique Location: Right upper back Discussed indications for procedure and expectations including risks and benefits. Verbal consent obtained. Skin prep with alcohol. Local anesthesia with 1% lidocaine, 1/100,000 epinephrine. A sampleof the lesion was removed by shave technique to the level of the dermis and submitted to Pathology.Hemostasis obtained. There were no complications; the patient tolerated the procedure well. The wound was dressed. Post-procedure expectations, wound care and activity restrictions were reviewed. Follow-up based on pathology results. The following photos were obtained with patient consent: History of BCC - well healed scars as per above skin history. - NER - Reviewed importance of sun protection (hats/shade/clothing) and sunscreen recommendations (SPF30,UVA/UVB broad spectrum coverage, reapply every 2 hrs if still outside). RTC: 6 months for FSE, sooner pending pathology []Note routed to junior legal secretary [x]Recall has been placed in scheduling system []Appointment scheduled at checkout Scribe attestation: Scott Stinson LPN has performed the documentation for this encounter in the presence of and acting as a scribe for Rohan Rider MD I performed the above scribed service and agree with the accuracy of the documentation in this encounter. Reviewed and signed by: Rohan Rider MD Dermatology [facility] Patient seen and evaluated with staff litigation paralegal: Yasmani Hartmann MD Dermatology [facility] * Yasmani Hartmann III, MD - 11/14/2020 3:20 PM EDT I directly supervised Dr. Rider during this office visit. Dr. Rider presented the history and physical exam to me. I then saw and examined this patient with Dr. Rider . We reviewed the history and pertinent details and I confirmed the physical findings. I agree with the details of the historyand physical exam as documented in Dr. Rider's note. YASMANI HARTMANN III, MD Staff Physician * Rohan Rider MD - 11/14/2020 3:20 PM EDT Called patient, unable to reach, left VM requesting return call. Plan to offer Mohs vs. ED&C for lesion on the ear. DIAGNOSIS A - Right pinna, skin shave removal; - ??Basal cell carcinoma, superficial and nodular types, ?? 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 documented in this encounter Plan of Treatment Not on file documented as of this encounter Procedures Procedure Name Priority Date/Time Associated Diagnosis Comments SPECIMEN TO PATHOLOGY Routine 11/14/2020 4:54 PM EDT Neoplasm of uncertain behavior SURGICAL PATHOLOGY REPORT Routine 11/14/2020 3:49 PM EDT SPECIMEN TO PATHOLOGY Routine 11/14/2020 3:49 PM EDT Neoplasm of uncertain behavior SPECIMEN TO PATHOLOGY Routine 11/14/2020 3:49 PM EDT Neoplasm of uncertain behavior documented in this encounter Results * Specimen to Pathology (11/14/2020 4:54 PM EDT) AP Specimen 11/14/2020 4:54 PM EDT 11/14/2020 4:54 PM EDT Narrative [facility] - 11/14/2020 4:54 PM EDT Specimen requisition ordered. ??Separate Pathology report to follow Yasmani Hartmann III, MD PATHOLOGY/CYTOL TARAN ORDERABLES [facility] [place] [place] [address] * Surgical Pathology Report (11/14/2020 3:49 PM EDT) Final Diagnosis [id number] ? Location: [facility] The signing pathologist has (i) examined the relevant preparation(s) for the specimen(s) and (ii) rendered or confirmed the diagnosis(es). . ?Surgical Pathology DIAGNOSIS A - Right pinna, skin shave removal; - ??Basal cell carcinoma, superficial and nodular types, ?? 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 of Pathology, [place], [place] SPECIMEN(S) SUBMITTED A - Right pinna, skin shave removal (1) B - Right cheek, skin shave biopsy (1) C - Right upper back, skin shave biopsy (1) CLINICAL INFORMATION A - R/O BCC-right pinna: 2-3 mm pearly papule B - Sebaceous gland hyperplasia vs BCC-right cheek: 4 mm yellow to pink papule C - Suspected nevus vs amelanocytic melanoma-right upper back: 3 mm pink papule SPECIMEN PROCESSING A - Labeled/Fixative : Right pinna, formalin. Quantity/Size: ??Single, 0.7 x 0.5 x 0.1 cm. Tissue Description: Shave of granular, yost-white skin. Sections/Process ing: Inked, trisected and entirely submitted in 1 cassette labeled A1. B - Labeled/Fixative : Right cheek, formalin. Quantity/Size: ??Single, 0.5 x 0.4 x 0.2 cm. Tissue Description: Dry, granular irizarry-white papule. Sections/Process ing: Inked, bisected and entirely submitted in 1 cassette labeled B1. C - Labeled/Fixative : Right upper back, formalin. Quantity/Size: ??Single, 0.7 x 0.6 x 0.2 cm. Tissue Description: Granular, pink white papule. Sections/Process ing: Inked, trisected and entirely submitted in 1 cassette labeled C1. ??pps 11/18/2020 3:51 PM EDT [facility] SPECIMEN FROM SKIN / Unknown 11/14/2020 3:49 PM EDT 11/14/2020 3:49 PM EDT SPECIMEN FROM SKIN / Unknown 11/14/2020 3:49 PM EDT 11/14/2020 3:49 PM EDT SPECIMEN FROM SKIN / Unknown 11/14/2020 3:49 PM EDT 11/14/2020 3:49 PM EDT Rohan Osborne MD PATHOLOGY/CYTOLOGY ORDERABLES Performing Organization Address [facility] [place] [address] * Specimen to Pathology (11/14/2020 3:49 PM EDT) AP Specimen 11/14/2020 3:49 PM EDT 11/14/2020 3:49 PM EDT Narrative [facility] - 11/14/2020 3:49 PM EDT Specimen requisition ordered. ??Separate Pathology report to follow Yasmani Hartmann III, MD PATHOLOGY/CYTOL OGY ORDERABLES Performing Organization Address [facility] [place] [address] * Specimen to Pathology (11/14/2020 3:49 PM EDT) AP Specimen 11/14/2020 3:49 PM EDT 11/14/2020 3:49 PM EDT Narrative [facility] - 11/14/2020 3:49 PM EDT Specimen requisition ordered. ??Separate Pathology report to follow Yasmani Hartmann III, MD PATHOLOGY/CYTOL OGY ORDERABLES Performing Organization Address [facility] [place] [address] documented in this encounter Visit Diagnoses Diagnosis Neoplasm of uncertain behavior Neoplasm of uncertain behavior, site unspecified Hx of basal cell carcinoma Personal history of other malignant neoplasm of skin Multiple benign nevi Benign neoplasm of skin, site unspecified Seborrheic keratosis Other seborrheic keratosis Harris angioma Nevus, non-neoplastic Irritant contact dermatitis, unspecified trigger documented in this encounter Care Teams Junior Buyer Relationship Specialty Start Date End Date None None PCP - General 8/27/20 documented as of this encounter
--- OUTSIDE RECORDS SUMMARY | 2024-04-16 11:44 | XMS_ITS | Encounter Summary ---
Author Organization [facility] Address [facility] [place] [address] Care Team Providers Care Court Operations Clerk Name Role Phone Mickie Byrne Primary Care Provider [phone] Reason for Visit * Reason Comments Dermatitis Skin Check * Consultation (Routine) - Specialty Diagnoses / Procedures Referred By Contmike t Referred To Contact Dermatology Diagnoses Diseases of lips Dermatitis, unspecified Mickie Byrne PA [address] [place] [address] [facility] [address] [place] [address] Referral ID Status Reason Start Date Expiration Date V isits Requested Visits Authorized [id number] Consult, Test [facility] PCP Updated and/or Approved 06/08/2019 12/07/2019 6 6 Encounter Details Date Type Department Care Team (Late st Contact Info) Description 06/14/2019 10:30 AM EST Office Visit Dermatology at [facility] [address] [place] [address] Rohan Osborne MD [facility] [address] [place] [address] Eczema, unspecified type; Neoplasm of uncertain behavior of skin Social History Tobacco Use Types Packs/Day Years Used Date Smoking Tobacco: Every Day Cigarettes Smokeless Tobacco: Never Sex and Gender Information Value Date Recorded Sex Assigned at Not on file Gender Identity Not on file Sexual Orientation Not on file documented as of this encounter Progress Notes * Rohan Rider MD - 06/14/2019 10:30 AM EST Images from the original note were not included. DERMATOLOGY - ESTABLISHED PATIENT FOLLOW-UP Date of service: 06/14/2019 Uli Barone : 1955, 64 y.o. Chief Complaint: Chief Complaint Patient presents with ??? Dermatitis ??? Skin Check HPI: Uli Barone is a 64 y.o. male last seen by AURORA Esposito (Bri) on 06/01/2018. Mr. Barone returns today for new flare of his rash located on his trunk, arms, and legs. The rash has been coming and going for 6-7 years, but this most recent flare started flaring about 3 months ago, it is very itchy and only occasionally keeps him up at night, he is just treating with OTC lotion only when it is flaring. He washes with dove sensitive skin soap, he is currently taking a prednisone taper 10 mg - 40 x 3 days, 30 x 3 days, 20 x 3 days, 10 x 3 days, he has just finished the thirdday at 40 mg. H e notes that prednisone is really helping, he is not using any topical steroids because he has run out of them. Denies any changes in personal skin care products or medications. Relevant Skin History: - Okay to leave detailed message with results? Yes - Nummular eczema ?? Family History: Melanoma: None ?? Relevant Social History: - Ramirez Medications: Current Outpatient Medications Medication Sig Dispense Refill ??? CHANTIX STARTING MONTH BOX 0.5 mg (11)- 1 mg (42) Tablets, Dose Pack ??? augmented betamethasone dipropionate (DIPROLENE) 0.05 % Ointment Apply to itchy/affected areas on the body twice daily for 2 weeks. Then apply twice daily on weekends only (Sat-Sun) 50 g 3 ??? mupirocin (BACTROBAN) 2 % Ointment Apply to crusty areas on the hands and lower legs twice daily. 22 g 2 ??? lisinopril (PRINIVIL;ZESTRIL) 20 mg Tablet ??? cetirizine (ZYRTEC) 10 mg Tablet ??? triamcinolone (KENALOG) 0.1 % Ointment After 2 weeks of augmented betamethasone only, apply to itchy/affected areas on the body twice daily on week days (Mon-Fri) 80 g 2 No current facility-administered medications for this visit. Allergies: No Known Allergies Review of Systems: - General: Feels well. - Skin: No other skin concerns. Examination: - Constitutional: Patient was alert, well-appearing and in no noticeable distress. - Skin: Skin examination of the scalp, face, ears, neck, back, chest, abdomen, right and left upperextremities, right and left lower extremities, hands, feet, and buttocks was normal with the exception of the findings listed below. Genitalia not examined. - A female nurse was present and on standby during my examination. Diagnosis/Skin findings/Assessment/Plan: # Neoplasm of Uncertain Behavior of the Skin: BCC vs SCC (A) - 5 x 6 mm pearly pink papule on the left posterior neck - Joint decision made to pursue shave biopsy Procedure Shave Procedure Discussed with patient diagnostic options, including the risks and benefits of observation, empirictreatment, and biopsy, including but not limited to recurrence, cosmesis (scar, dyspigmentation, scar spread,keloid), pain, keloid/hypertrophic scar, bleeding, infection. Patient verbally understandsand elects biopsy. -Time Out Performed: Full Name, , and site(s) confirmed with patient -Site was prepped in sterile fashion with Alcohol. Anesthesia with 1% lidocaine + 1:100,0000 epinephrine. Lesion biopsied with shave technique using ann blade. -Hemostasis achieved with Drysol. <1ml blood loss. No complications. Specimen(s): Placed in formalin and sent to Pathology for histologic examination. Post-op care: Vaseline, Pressure Dressing # Ddx: BCC vs SCC (B) - 1 cm x 7 mm pink scaly plaque with rolled borders on the left lateral neck - Joint decision made to pursue shave biopsy Procedure Shave Procedure Discussed with patient diagnostic options, including the risks and benefits of observation, empirictreatment, and biopsy, including but not limited to recurrence, cosmesis (scar, dyspigmentation, scar spread,keloid), pain, keloid/hypertrophic scar, bleeding, infection. Patient verbally understandsand elects biopsy. -Time Out Performed: Full Name, , and site(s) confirmed with patient -Site was prepped in sterile fashion with Alcohol. Anesthesia with 1% lidocaine + 1:100,0000 epinephrine. Lesion biopsied with shave technique using ann blade. -Hemostasis achieved with Drysol. <1ml blood loss. No complications. Specimen(s): Placed in formalin and sent to Pathology for histologic examination. Post-op care: Vaseline, Pressure Dressing # Ddx: BCC vs SCC (C) - 2 cm x 8 mm raised pink shiny ulcerated plaque on the left lower neck - Joint decision made to pursue shave biopsy Procedure Shave Procedure Discussed with patient diagnostic options, including the risks and benefits of observation, empirictreatment, and biopsy, including but not limited to recurrence, cosmesis (scar, dyspigmentation, scar spread,keloid), pain, keloid/hypertrophic scar, bleeding, infection. Patient verbally understandsand elects biopsy. -Time Out Performed: Full Name, , and site(s) confirmed with patient -Site was prepped in sterile fashion with Alcohol. Anesthesia with 1% lidocaine + 1:100,0000 epinephrine. Lesion biopsied with shave technique using ann blade. -Hemostasis achieved with Drysol. <1ml blood loss. No complications. Specimen(s): Placed in formalin and sent to Pathology for histologic examination. Post-op care: Vaseline, Pressure Dressing # Eczema - Demarcated eczematous plaques - Rx: Triamcinolone 0.1% ointment (454g) apply twice daily to affected areas of the body for 14 days, then take 1 week off, repeat as needed - Discussed risks of prolonged topical corticosteroid use including atrophy, striae, hypopigmentation, tachyphylaxsis. Instructed to avoid face, intertriginous, or other thin-skinned highly penetrable areas (eg, the perineum, axillae). - finish Rx: Prednisone tape 10mg - as per PCP - Recommend sensitive skin care: Dove fragrance free bar soap (folds/feet only), Cerave cream/Vanicream/Aveeno daily moisturizer within a few minutes of getting out of shower, emphasized the importance of using a moisturizer every single day even when he is not itchy, lukewarm showers - discussed Vinegar soaks/spray - 1 part vinegar to 6 parts water in a spray bottle to acidifiy theskin after showering and let sit for 30 seconds before toweling off and then apply a moisturizer # Blue Nevus - 2 mm dark brown to black symmetric papule on the right mid back - patient reassured, continue to monitor RTC: 3 months for full skin exam and rash follow up The following photos were obtained with patient consent: Note initiated by LILLY Lowe. I, LILLY Lowe, have performed the documentation for this encounter in the presence of and acting as a scribe for Rohan Rider MD. I performed the services which were documented by the scribe, and I agree with the accuracy of the documentation in this encounter. Rohan Rider MD Reviewed and signed by: Rohan Rider MD Resident in Dermatology [facility] Patient seen and evaluated with staff core maker: Lorena Pena MD Section of Dermatology [facility] * Lorena Pena MD - 06/14/2019 10:30 AM EST I directly supervised the Dermatology resident during this office visit. The resident presented thehistory and physical exam to me. I then saw and examined this patient with the resident. We reviewed the history and pertinent details and I confirmed the physical findings. I agree with the details of the history and physical exam as documented in the resident's note. LORENA PENA MD Staff Physician * Rohan Rider MD - 06/14/2019 10:30 AM EST Called patient with results of biopsy below. Given close proximity of the lesions and location on the neck, recommended Mohs Surgery. Patient is in agreement with this plan. Patient is expecting callto help coordinate a date for Mohs Surgery to three sites on his left neck. Jennifer and Willa, please help with scheduling. Thanks! AJ A. Skin, left posterior neck, shave biopsy: - Basal cell carcinoma, superficial and nodular type, present at the peripheral and ??deep specimen edges B. Skin, left lateral neck, shave biopsy: - Basal cell carcinoma, superficial and nodular type, present at the peripheral and ??deep specimen edges - Incidental ??dermal melanocytic nevus, present at the deep specimen edge C. Skin, left lower neck, shave biopsy: - Basal cell carcinoma, superficial and nodular type, ?present at the deep specimen documented in this encounter Plan of Treatment Not on file documented as of this encounter Procedures Procedure Name Priority Date/Time Associated Diagnosis Comments SPECIMEN TO PATHOLOGY Routine 06/14/2019 10:59 AM EST Neoplasm of uncertain behavior of skin SURGICAL PATHOLOGY REPORT Routine 06/14/2019 10:23 AM EST documented in this encounter Results * Specimen to Pathology (06/14/2019 10:59 AM EST) AP Specimen 06/14/2019 10:5 9 AM EST 06/14/2019 12:45 PM EST Narrative [facility] - 06/14/2019 12:45 PM EST Specimen requisition ordered. ??Separate Pathology report to follow Resulting Agency Comment Spec In Lab Lorena Pena MD PATHOLOGY/CYTOLOGY ORDERABLES [facility] [place] [address] * Surgical Pathology Report (06/14/2019 10:23 AM EST) Final Diagnosis [id number] ? Location: [facility] The signing pathologist has (i) examined the relevant preparation(s) for the specimen(s) and (ii) rendered or confirmed the diagnosis(es). . ?Surgical Pathology DIAGNOSIS A. Skin, left posterior neck, shave biopsy: - Basal cell carcinoma, superficial and nodular type, present at the peripheral and deep specimen edges B. Skin, left lateral neck, shave biopsy: - Basal cell carcinoma, superficial and nodular type, present at the peripheral and deep specimen edges - Incidental ??dermal melanocytic nevus, present at the deep specimen edge C. Skin, left lower neck, shave biopsy: - Basal cell carcinoma, superficial and nodular type, ?present at the deep specimen edge Electronically signed by: ??Orlando PINA, Oli Santana Verified: ??06/19/2019 ?Dermatopatholo gist Performed at: ??-[facility] Dept. of Pathology, [place], [place] CLINICAL INFORMATION Specimen Submitted: A - Skin, left posterior neck, skin shave biopsy, (1) B - Skin, left lateral neck, skin shave biopsy, (1) C - Skin, left lower neck, skin shave biopsy, (1) Clinical History and Diagnosis: A - 5 x 6 mm pearly pink papule; BCC versus SCC B - 1 cm x 7 mm pink scaly plaque with rolled borders; BCC versus SCC C - 2 cm x 8 mm raised pink shiny ulcerated plaque; BCC versus SCC SPECIMEN PROCESSING A - Labeled/Fixative : A left posterior neck, formalin. Quantity/Size: ??Single, 1.0 x 0.7 x 0.2 cm. Tissue Description: Thickened shave of slightly firm, yost-pink skin. Sections/Process ing: Inked, quadrisected and entirely submitted in 1 cassette labeled A1. B - Labeled/Fixative : B left lateral neck, formalin. Quantity/Size: ??Single, 1.3 x 1.0 x 0.2 cm. Tissue Description: Thickened shave of slightly firm, yost-pink and scaly skin. Sections/Process ing: Inked, serially sectioned and entirely submitted in 2 cassettes as follows: ?B1: ??Tips. ?B2: ??Body. C - Labeled/Fixative : C left lower neck, formalin. Quantity/Size: ??Single, 1.7 x 0.8 x 0.1 cm. Tissue Description: Shave of a slightly firm, yost-pink, scaly, and eroded plaque. Sections/Process ing: Inked, serially sectioned and entirely submitted in 2 cassettes as follows: ?C1: ??Tips. ?C2: ??Body. ??apb 06/19/2019 10:31 AM EST [facility] SPECIMEN FROM SKIN / Unknown 06/14/2019 10:23 AM EST 06/14/2019 10:23 AM EST SPECIMEN FROM SKIN / Unknown 06/14/2019 10:23 AM EST 06/14/2019 10:23 AM EST SPECIMEN FROM SKIN / Unknown 06/14/2019 10:23 AM EST 06/14/2019 10:23 AM EST Rohan Osborne MD PATHOLOGY/CYTOLOGY ORDERABLES Performing Organization Address City/State/[facility] Co de Phone Number [facility] [place] [address] documented in this encounter Visit Diagnoses Diagnosis Eczema, unspecified type Neoplasm of uncertain behavior of skin documented in this encounter Care Teams Court Operations Clerk Relationship Specialty Start Date End Date Mickie Byrne PA [address] [place] [address] PCP - General Family Medicine 09/02/17 01/01/20 documented as of this encounter
--- OUTSIDE RECORDS SUMMARY | 2024-04-16 11:44 | XMS_ITS | Encounter Summary ---
Author Organization [facility] Address [facility] [place] [address] Care Team Providers Care Hot Mill Worker Name Role Phone None Primary Care Provider Unavailabl e Reason for Visit * Reason Comments Basal Cell Carcinoma * Consultation (Routine) - Closed Specialty Diagnoses / Procedures Referred By Contac t Referred To Contact Dermatology Diagnoses Basal cell carcinoma (BCC), unspecified site Rohan Osborne MD [facility] [address] [place] [address] [facility] [address] [place] [address] Referral ID Status Reason Start Date Expiration Date V isits Requested Visits Authorized [id number] Closed Consult, Test & Treat 04/18/2020 04/18/2021 1 1 Encounter Details Date Type Department Care Team (Latest Contact Info) Description 07/01/2020 10:30 AM EST Procedure visit Dermatology at [facility] [address] [place] [address] Ernie Pop MD [facility] [address] [place] [address] Basal cell carcinoma of left oriental orthodox region Social History Tobacco Use Types Packs/Day Years Used Date Smoking Tobacco: Every Day Cigarettes Smokeless Tobacco: Never Sex and Gender Information Value Date Recorded Sex Assigned at Not on file Gender Identity Not on file Sexual Orientation Not on file documented as of this encounter Last Filed Vital Signs Vital Sign Reading Time Taken Comments Blood Pressure 153/70 07/01/2020 10:16 AM EST Pulse 76 07/01/2020 10:16 AM EST Temperature - - Respiratory Rate - - Oxygen Saturation - - Inhaled Oxygen Concentration - - Weight - - Height - - Body Mass Index - - documented in this encounter Patient Instructions * Patient Instructions* Natalee Bobby, BENI - 07/01/2020 10:30 AM EST Your staff surgeon today was Ernie Pop MD,PhD. Your wound(s) was repaired by [id number]-teke stitches called a primary repair. You do not need to come back for suture removal because only absorbable sutures were used today. If the absorbable sutures bother your skin or do not absorb after 2 weeks, you may call us to remove them for you. Instructions are as below. Please keep this as a reference: Wound Care For wounds closed with absorbable-only stitches: ??? Gently remove your initial bandage (after 48 hours from surgery) and begin wound care as below. ??? If your initial bandage only lasts 24 hours (for example, falls off sooner), this is okay. Resume your wound care and bandaging instructions as below. ??? Change your bandage once a day (and whenever it becomes wet or soaks through). DO WOUND CARE FOR ONE WEEK. ??? For bandage changes: o Wash hands with soap and water, or use gloves that you can purchase a local pharmacy or drug store. o Clean the surgical area with cotton-tipped swabs or gauze dipped in soapy water (recommend liquidsoap in clean room temperature water). Do not scrub the area or put direct shower water pressure onto your wound. It is okay to allow soapy water to run over your wound in the shower. o If you cannot remove crusted areas, you may soak with wet gauze first for 15 to 20 minutes to help soften it. o Pat the area dry with clean gauze or cotton swabs. Do not rub. o Use a cotton swab to apply a generous layer of petroleum jelly over the incision lines and any open-wound areas. o Cover with clean nonstick gauze or other nonstick dressing, such as Telfa. This may be purchased over the counter at a drug store. Secure with paper tape or bandage. Band-aids are okay, but typically have more adhesive that can irritate the skin compared to paper tape. o Discontinue wound care after 7 days. If any portion of the incision was left open to heal on its own, continue to apply Vaseline daily until healed. o Allow the absorbable stitches to heal. If the top stitches that are absorbable are irritating your skin, you may call us to have them removed. Otherwise, they will be absorbed naturally in approximately 2 weeks. It may absorb as quickly as 4 days. o Keep in mind that if you do not want to use a bandage at all due to difficulty, allergies, irritation of skin, cost, time, or inconvenience --- you can certainly avoid bandages altogether. However,it is imperative that you continue with topical petrolatum ointment or Aquaphor (plain, fragrance-free). This may need to be applied several times daily if it gets wiped off, washed off, or dries out. Things to purchase for wound care: -Nonstick gauze -A tube or tub of petrolatum jelly (fragrance-free, no dye, not lotion) -paper tape -cotton swabs -gloves (optional) -Dial or other antibacterial liquid soap After Surgery 1. If you are a tobacco user please attempt to decrease the amount of tobacco products used following surgery for 1-2 weeks. 2. Limit alcohol intake to one drink per day for the next 3 days. 3. Do not participate in athletic activities for 5-7 days, unless you were told a different timeline during your visit. Athletic activity is a relative term, but this is considered to be anything that could potentially raise your heartrate or blood pressure. Elevating your heart rate and blood pressure increases the risk of swelling, bleeding, wound opening, and it could lead to worse scarring. Walking at a leisurely pace is fine for most people, but not if you are walking for the purpose of exercise. When in doubt, take it easy or call us. 4. Do not lift anything heavier than 10 pounds for 5-7 days postoperatively. 5. Some computer engineering professor may need to be delayed or delegated such as vacuuming, mowing the lawn, snow shoveling, or caring for young children that need to be carried/lifted. Working any major muscle groups increases your heart rate and can increasing bleeding. 6. Avoid swimming, hot tubs, and direct water pressure for 3 weeks after surgery. You may shower, however, once your initial bandage comes off in 48 hours. 7. Avoid antibiotic ointments such as triple antibiotic creams. Stick with your wound care instructions, please. 8. Whenever possible, it is helpful to take photographs with your camera or cell phone of any problems or concerns you see with your wound. We often ask for photos when you call with questions. 9. Starting 2 months following surgery, you can begin firm massage to any areas of firm scar along your incision to soften the scar and reduce bumpiness. Do this 3 times per day, 3 minutes each time.Do not start massage before 2 months. 10. Your wound will appear almost completely healed soon after sutures are removed (about 1 week), but incisions can remain bright red for several weeks. Then the scarring and healing process continues under the skin for 6 months until to 2 years. The scar may become less red, less firm, and more subtle during this time; please note that the rate of improvement varies depending on the person. Most redness, discoloration, bumpiness resolves by 6 months, and most patients will look presentable within a few weeks after surgery. 11. Keep your follow-up appointments and make sure to continue to have your skin checked, as often as is recommended by your mud analysis supervisor, for new skin cancers. This is once per year for most patients. 12. Your can expect your scar to be red for several weeks with gradual fading of the redness. Your scar will also be raised and lumpy until the dissolvable sutures under the skin get absorbed by yourbody which can take 3-4 months. The scar will flatten eventually. a. If you have a skin condition called rosacea, the redness can last long-term, or you can get an increased appearance of red vessels to the skin. The appearance of vessels slightly improves, but tends to respond well to laser treatments. 13. Occasionally, about 20% of the time on the face, the stitches under the skin can spit out of the incision to the surface. It can start out looking like a pimple or blemish directly on your incision. Sometimes you can feel something poking through the incision. it can look also minic a small area of infection, so please let us know before you go to another provider for antibiotics. This means that the suture may need to be trimmed or removed when you return for your wound check. This typically occurs a few weeks after surgery if it does occur. 14. To optimize your scar, and best cosmetic result, please avoid direct sunlight to your incision for the first 6 months following surgery. UV ray exposure to your incision may cause the redness to last longer, or to cause permanent darkening of your scar. You can avoid sun by covering your incision with a bandage when outdoors, wearing broad-rimmed hats, and wearing SPF 30 to 50 sunscreen (broad spectrum). 15. Any time you have skin surgery or any type of surgery, you can experience mild sensation loss (numbness) in the area of surgery. Massage starting at 8 weeks after surgery can help. 16. Swelling and bruising is common, and expected, especially if your surgery site was on the forehead, cheeks, temples, nose, or eyelids. . Sometimes it can be quite profound, where the eyelids swell shut, or getting black eyes. This is especially true if you are on blood thinners such as aspirin. Swelling and bruising will peak at about 48 hours after surgery. Bruising and swelling will gradually resolve. You can use ice packs or a bag of frozen peas for 15-20 minutes, 20 minutes off, up to3-4 times daily to areas of swelling on the face. Use caution not to put the icy item directly ontoyour incision, or directly in contact with your skin as this can damage skin. Avoid prolonged use more than 20 minutes. The best way to use ice packs is over the bandage, or using a light cloth/papertowel barrier between the ice pack and your skin. You can ice for as many days as needed until swelling has resolved. Eyelid and lip swelling is typically the last type of swelling to resolve. Antibiotics: If you were given antibiotic prescription, it is important to start them the evening of your surgery date. However, most patients do not need antibiotics after surgery. For pain: Most patients of different ages do not require pain medications. If you do feel soreness, throbbingor sharp pains, start by taking over the counter extra strength acetaminophen (up to 3000 mg in a 24 hour period). Generally, we like you to avoid NSAIDS (non-steroid anti-inflammatory drugs such as ibuprofen) for the first 48 hours after surgery as this can increase risk of bleeding. However, if acetaminophen is not helping with pain, you can alternate acetaminophen with iburpofen or other NSAID. Ice packs over your bandage without getting your bandage wet can also help with pain and swelling.Frozen peas work well as ice packs. THIS IS AN EXAMPLE OF A PAIN TREATMENT SCHEDULE: 1) You can take 500 mg acetaminophen one tablet by mouth at 6:00pm. This is over the counter. 2) You can take 400 mg of ibuprofen two hours later, at 8:00 pm, or other NSAID such as naproxen, as long as it does not interact with your other medications and your other doctors have not told you to avoid this. This is over the counter. Check to see how many milligrams (mg) each of your ibuprofen tablets are. Most of the time, ibuprofen comes in 200 mg tablets, so 400 mg would mean taking two of these tablets or capsules. 3) You can take 500 mg of acetaminophen at 10:00 pm. Keep track of your total acetaminophen in a 24hour period as your maximum should be 3000 mg total in a 24 hour period of this medication. 4) At midnight, you can take another 400 mg of ibuprofen. 5) you can continue on this schedule over the next 2 days, making sure to keep tabs of your total acetaminophen. If you are still in pain after trying the above, please call us. When to call your surgeon: ??? Fever of 100.4 degrees Fahrenheit or higher ??? Bleeding not controlled with direct firm pressure to your wound. Bleeding is most common in thefirst 48 hours. ??? Pain that is worsening and not relieved by over the counter medications such as acetaminophen (up to 3000 mg in a 24 hour period) ??? Wound reopening after stitching ??? Pus or bad odor from your wound ??? Worsening redness and warmth around your wound ??? If you think your surgery site is infected, please call us before seeking care or antibiotics from other providers ??? Please call us before seeking care in an emergency room or primary care. ??? If you do call, please leave your full name, phone number, date of , date of surgery, and medical record number if you have it. If after hours, please call the twisting operator or [phone] and ask for the mud analysis supervisor on-call. If you have any non-urgent questions or concerns, please feel free to call my office or contact me through our patient portal, [employer], at [email or web address] How to contact us during business hours Dermatology at [facility] [address]: Mohs scheduling or Mohs follow-up appointments: [phone] documented in this encounter Progress Notes * Ernie Pop MD - 07/01/2020 10:30 AM EST Images from the original note were not included. Summary of Procedure(s): Site: left oriental orthodox Tumor Type: Basal Cell Carcinoma, superficial/ nodular Stages to clear tumor: 3 Repair: linear closure Images: The patient was asked to call with any issues and is aware that I am available 06/12 should questions arise. Ernie Pop MD PhD Mohs Micrographic Surgery and Dermatologic Oncology Department of Dermatology Please note that I have reviewed the preoperative checklist from today's nursing visit including relevant social history and medications. I have reviewed the preoperative photos if available and the biopsy report. VITAL SIGNS: There were no vitals taken for this visit. PHYSICAL EXAMINATION: General: patient is awake, alert, oriented and in no acute distress. Skin: Focused examination of surgical site(s) performed which shows a well healed biopsy site with surrounding poorly defined pearly plaque with adjacent scar. PHYSICIAN REVIEW OF REPORTS, RECORDS, IMAGES: 1) The accompanying pathology report(s) associated with aforementioned biopsy slide(s) were/was also reviewed. Assessment: Uli Barone is a 65 y.o. male presenting for: 1. Biopsy-proven basal cell carcinoma, superficial/ nodular located on the left oriental orthodox. Plan: 1. Findings from the biopsy report, today's clinical exam, and other pertinent details were reviewed with patient today. All questions were answered. 2. Discussed treatment options based on the above findings. We recommended Mohs micrographic surgery for treatment of this tumor. Mohs micrographic surgery was indicated due to patient, site and/or tumor characteristics (see operative report for specific indication). 3. We discussed risks, benefits, and alternative treatment options to the Mohs micrographic surgeryprocedure and pertinent information including but not limited to the following: ?? Risks include bleeding, infection, scar, recurrence, incomplete tumor removal or inability to cure with surgery alone if the tumor features are more aggressive than the initial pathology indicates. Occasionally, additional adjuvant treatments may be recommended. Additional risks include large wound, prolonged wound and healing, pain, swelling, bruising, increased appearance of vessels or worsening erythema of baseline skin; more rarely risks include damage to underlying structures such as nerves, cartilage, or muscle which could lead to temporary or permanent loss of sensation or motor function. ?? Benefit is precise tumor removal ?? If reconstruction is performed, it is specific to the patient and defect. ?? Discussed that the shape, size, depth of the wound is often not known until the tumor is clearedand thus the reconstruction options are sometimes not known until after tumor clearance. Occasionally, referrals to other providers may be recommended for reconstruction based on patient preference and need. ?? Reviewed the pros and cons of common reconstructions used for this tumor type, size, and location, and that reconstruction may lead to change in appearance. ?? Natural history of scar was discussed, including that the scar will continue to mature for 1-2 years. Recommended avoidance of special ointments or scar creams, and avoidance of direct sun exposure to the scar for optimal recovery. ?? Reviewed that there are some aspects of cosmesis that are dependent on patient's characteristicssuch as age, skin laxity/texture factors, inflammatory skin diseases such as rosacea, prior surgery/radiation, degree of actinic damage, smoking status, strength of the patient's immune system, diligent wound care, medications, and genetics. ?? Having Mohs surgery may lead to physical limitations for optimal healing, such as restricted physical activity and heavy lifting. 4. The nature of sun-induced photo-aging and skin cancers was discussed. Recommended sun avoidance when possible, especially peak hours of sun 10 am to 2pm, protective clothing such as wide-brimmed hats and long-sleeved clothing, and the use of SPF broad-spectrum sunscreen SPF 50 or higher. 5. Signs and symptoms of skin cancer reviewed. Patient to report any new, changing, or symptomatic lesions and follow up with his or her mud analysis supervisor or other skin provider. 6. Discussed avoiding direct sun exposure to scars for best cosmetic result. Note initiated by NELDA Bella RN has performed the documentation for this encounter in the presence of and acting as a scribe for Dr. Pop I performed the above scribed service and agree with the accuracy of the documentation in this encounter. Reviewed and signed by: Ernie Pop Dermatology [facility] * Ernie Pop MD - 07/01/2020 10:30 AM EST Mohs micrographic Surgery Operative Report Patient name: Uli Barone : 1955 Date: 07/01/2020 Staff Surgeon: Ernie Pop MD PhD Nursing/Angiographer(s): Radha Mccarty RN, Natalee Bobby [facility], Fe Suazo, Samy Merritt [facility] Solution Design Engineer (s): Brit Gray Pre-operative diagnosis: basal cell carcinoma, superficial/nodular, recurrent Post-operative diagnosis: basal cell carcinoma, superficial/ nodular, recurrent Location/Site: left oriental orthodox Procedure: Mohs micrographic surgery Indication(s) for Mohs micrographic surgery: Critical anatomic location for tissue conservation Stages: 3 Preoperative size of tumor: 1.6 x 1.3 cm Final defect size: 2.8 x 2.1 cm Stage I The nature and purpose of the procedure, associated risks, possible consequences and complications,and alternative forms of treatment were explained in detail. We reviewed the possible repairs basedon the clinical appearance of tumor but discussed that often the repair options may not be known until the tumor has lamont extirpated. Informed consent and permission to take photographs were obtained. The site was confirmed with the patient/authorized sales representative printing supplies/referring physician and/or a photograph form time of biopsy. A pre-operative time-out (procedural pause) was conducted with no unresolved discrepancies noted. Local anesthesia was obtained with 1% lidocaine with 1:100,000 epinephrine. The surgical site was prepped and draped in the usual sterile manner. With all visible gross tumor completely excised, the borders of the tumor and 2- 3 mm margins were excised as a complete layer. Hemostasis was achieved by electrocoagulation. The excised tissue was oriented and divided into 2 sections, chromacoded, and submitted for frozen sections. The patient tolerated the procedure well and without complications. On microscopic evaluation of the frozen sections, residual tumor was identified as basal cell carcinoma on section A1 and A2 (see section number on map). Stage II The surgical site was re-anesthetized with 1% lidocaine with 1:100,000 epinephrine, re-prepped and redraped in a sterile manner. The residual tumor was re-excised as a complete layer 2-3mm in thickness using the Mohs map to delineate area of residual tumor. Hemostasis was achieved with electrocoagul ation. The tissue was oriented and divided into 1 sections, chromacoded, and submitted for frozen sections. The patient tolerated the procedure well and without complications. On microscopic evaluation of the frozen sections, residual tumor was identified as basal cell carcinoma on section(s) B1. Stage III The surgical site was re-anesthetized with 1% lidocaine with 1:100,000 epinephrine, re-prepped and redraped in a sterile manner. The residual tumor was re-excised as a complete layer 2-3mm in thickness. Hemostasis was achieved with electrocoagulation. The tissue was oriented and divided into 1 sections, chromacoded, and submitted for frozen sections. The patient tolerated the procedure well and without complications. On microscopic evaluation of the frozen sections, no residual tumor was identified on the deep or outer border of the sections. The final size of the defect after complete tumor removal was 2.8 x 2.1 cm, extending to subcutaneous fat. Ernie Pop MD PhD Mohs Micrographic Surgery and Dermatologic Oncology Department of Dermatology [address] [place] [id number] Repair Operative Report Clinical Diagnosis: 2.8 x 2.1 cm surgical defect secondary to Mohs microscopically controlled excision Location/Site: left oriental orthodox Indication: repair of wound for anatomic/functional jew Procedure: Intermediate linear closure of Mohs defect General Surgery Physician Assistant: Radha Mccarty RN Due to the size and location of the defect resulting from the complete removal of the tumor, the postoperative risk of hemorrhage, infection, and the possibility of serious deformity from scarring, and in order to restore proper function and prevent loss of function, the defect was closed in the following manner. The nature and purpose of the procedure, associated risks, possible consequences, complications andalternative methods of treatment were explained to the patient in detail. An informed consent was obtained. The operative site was anesthetized with 1% lidocaine with 1:100,000 epinephrine. The site was prepped and draped in the usual sterile manner. Moderate undermining of the surrounding tissue was performed for tension free closure as necessary and redundant tissue excised. The deep tissues were apposed and sutured with 4-0 Monocryl sutures and the epidermal edges were approximated with 5-0 Fast Absorbing Gut running and/or interrupted sutures. The resulting intermediate linear closure measured 6.8 cm. The surgical site was cleaned and white petrolatum with a pressure dressing was applied. The patient tolerated the procedure well and without complications and was given both verbal and written instruction on postoperative wound care. Follow up as needed. The patient was discharged in good condition. Total local anesthesia with 1% lidocaine with 1:100,000 epinephrine used: 15cc Total local with 0.25% bupivacaine with 1:100,000 epinephrine used: 9cc Ernie Pop MD PhD Mohs Micrographic Surgery and Dermatologic Oncology Department of Dermatology [address] [place] [address] Note initiated by Radha Mccarty RN. Radha Mccarty RN has performed the documentation for this encounter in the presence of and acting as a scribe for Dr. Pop I performed the above scribed service and agree with the accuracy of the documentation in this encounter. Reviewed and signed by: Ernie Pop Dermatology [facility] documented in this encounter Plan of Treatment Scheduled Referrals Name Type Priority Associated Diagnoses Orde r Schedule Referral to Dermatology Outpatient Referral Routine Basal cell carcinoma (BCC), unspecified site Ordered: 04/18/2020 documented as of this encounter Visit Diagnoses Diagnosis Basal cell carcinoma of left oriental orthodox region Basal cell carcinoma of skin of other and unspecified parts of face documented in this encounter Care Teams Hot Mill Worker Relationship Specialty Start Date End Date None None PCP - General 01/10/20 documented as of this encounter
--- OUTSIDE RECORDS SUMMARY | 2024-04-16 11:44 | XMS_ITS | Encounter Summary ---
Author Organization [facility] Address [facility] [place] [address] Care Team Providers Care Pbx Technician Name Role Phone Mickie Byrne Primary Care Provider [phone] Reason for Visit * Reason Comments Skin Check FSE Encounter Details Date Type Department Care Team (Late st Contact Info) Description 09/26/2019 1:00 PM EDT Office Visit Dermatology at [facility] [address] [place] [address] Rohan Osborne MD [facility] [place] [address] [place] (actinic keratosis); Neoplasm of uncertain behavior of skin; Harris angioma; Eczema, unspecified type; Stucco keratoses Social History Tobacco Use Types Packs/Day Years Used Date Smoking Tobacco: Every Day Cigarettes Smokeless Tobacco: Never Sex and Gender Information Value Date Recorded Sex Assigned at Not on file Gender Identity Not on file Sexual Orientation Not on file documented as of this encounter Patient Instructions * Patient Instructions* Merna Asif CCMA - 09/26/2019 1:00 PM EDT Shave Biopsy Wound Care Instructions Your treatment today: You have had a shave biopsy of your skin, which is a removal of tissue for examination under a microscope. This wound will heal without stitches. Allow 3-6 weeks for the wound to heal fully. If bleeding should occur, hold firm, constant pressure against the wound for 15- 20 minutes (with nopeeking). If bleeding continues, call the clinic or go to your local emergency department. Please allow 1-2 weeks for the biopsy results to return. Based on the results, your physician or nurse will contact you by phone or letter; follow-up will be discussed at that time. If in 2 weeks, you have not heard from us, please feel free to call to request your biopsy results. Wound care instructions: Keep the bandage placed over the wound dry and intact for 24 hours. Afterwards, perform the following wound care daily: ?? Wash your hands. ?? Remove the bandage, clean the area with soap and water, and gently pat dry. ?? Apply a small amount of Vaseline and cover with a Band-Aid. ?? Repeat daily until the wound is healed fully. A small amount of yellow drainage is part of the normal healing process. The area might appear as asmall depression with redness around the edge of the wound; this is normal. Please contact the clinic if you notice any of the following signs of infection: increased pain, tenderness, drainage, or redness that becomes hot or hard around the wound. Contact information: On weekdays (8am to 5pm), please call the clinic at [phone]. After 5pm, and on weekends and holidays, please call the hospital at [phone] and ask for the Redevelopment Manager Clinical Data Programmer. documented in this encounter Progress Notes * Em Smith LPN - 09/26/2019 1:00 PM EDT Intake info, duplicate . * Rohan Rider MD - 09/26/2019 1:00 PM EDT Images from the original note were not included. DERMATOLOGY - ESTABLISHED PATIENT FOLLOW-UP Date of service: 09/26/2019 Uli Barone : 1955, 64 y.o. Chief Complaint: Chief Complaint Patient presents with ??? Skin Check FSE HPI: Uli Barone is a 64 y.o. male last seen by myself on 06/14/2019. Mr. Barone returns today for full skin cancer examination (hx of BCC). Specific skin concerns today include patch of eczema on right hypothenar eminence. Otherwise his eczema is well controlled. He has been applying TAC ointment daily to this area for the past few days. He is not applying a moisturizer. Patient has no other concerning lesions today. Denies any other lesions that are changing, growing,bleeding or tender. Relevant Skin History: - Okay to leave detailed message with results? Yes - Skin cancer (including type): - BCC x 3, left posterior neck, left lateral neck, left lower neck, s/p mohs surgery 07/31/19, Dr. Pop - Nummular eczema ?? Family History: - Melanoma: None ?? Relevant Social History: - Ramirez Medications: Current Outpatient Medications Medication Sig Dispense Refill ??? triamcinolone (KENALOG) 0.1 % Ointment apply thin layer topically to itchy/affected areas on the body twice daily for 14 days, take 7 days off, repeat as needed 454 g 1 ??? CHANTIX STARTING MONTH BOX 0.5 mg [...] Tablet ??? cetirizine (ZYRTEC) 10 mg Tablet No current facility-administered medications for this visit. Allergies: No Known Allergies Review of Systems: - General: Feels well - Skin: No other skin concerns. Examination: - Constitutional: Patient was alert, well-appearing and in no noticeable distress. - Full Skin Exam: Skin examination of the scalp, face, ears, neck, back, chest, axillae, abdomen, right and left upper extremities, right and left lower extremities, hands, feet, and buttocks was normal with the exception of the findings listed below. Genitalia not examined. - A nurse/MA was present and on standby during my examination. Diagnosis/Skin findings/Assessment/Plan: #Multiple Neoplasms of Uncertain Behavior # BCC vs other: on the left cheek there is a 2-3 mm shiny pink papule - Joint decision to pursue shave biopsy - Patient denies any known allergies to lidocaine or epinephrine Shave??Biopsy Procedure Note:?? Location: as above (A) The patient's consent was obtained. Risk of infection, scarring, nerve damage, pigment change, numbness, incomplete removal, recurrence, bleeding, pain and uncommonly so, allergic reaction to anesthesia were all reviewed. Alcohol preparation was used. Anesthesia obtained with 0.5% lidocaine without epinephrine. A??shave biopsy was obtained and the specimen was sent to pathology for histologic evaluation.??Hemostasis obtained. (AlCl and/or electrocautery). ??Vaseline and bandaid were applied. Wound care was reviewed.There were no complications; the pt. tolerated the procedure well. # BCC vs other: on the left posterior shoulder there is a 7 mm shiny pink papule - Joint decision to pursue shave biopsy Shave??Biopsy Procedure Note:?? Location: as above (B) The patient's consent was obtained. Risk of infection, scarring, nerve damage, pigment change, numbness, incomplete removal, recurrence, bleeding, pain and uncommonly so, allergic reaction to anesthesia were all reviewed. Alcohol preparation was used. Anesthesia obtained with 0.5% lidocaine without epinephrine. A??shave biopsy was obtained and the specimen was sent to pathology for histologic evaluation.??Hemostasis obtained. (AlCl and/or electrocautery). ??Vaseline and bandaid were applied. Wound care was reviewed.There were no complications; the pt. tolerated the procedure well. #SCC vs BCC vs other: on the left scapula there is a 8 mm hyperkeratotic pink plaque - Joint decision to pursue shave biopsy Shave??Biopsy Procedure Note:?? Location: as above (C) The patient's consent was obtained. Risk of infection, scarring, nerve damage, pigment change, numbness, incomplete removal, recurrence, bleeding, pain and uncommonly so, allergic reaction to anesthesia were all reviewed. Alcohol preparation was used. Anesthesia obtained with 0.5% lidocaine without epinephrine. A??shave biopsy was obtained and the specimen was sent to pathology for histologic evaluation.??Hemostasis obtained. (AlCl and/or electrocautery). ??Vaseline and bandaid were applied. Wound care was reviewed.There were no complications; the pt. tolerated the procedure well. # SCC vs other: on the mid thoracic back there is a 1.2 cm hyperkeratotic pink papule - Joint decision to pursue shave biopsy Shave??Biopsy Procedure Note:?? Location: as above (D) The patient's consent was obtained. Risk of infection, scarring, nerve damage, pigment change, numbness, incomplete removal, recurrence, bleeding, pain and uncommonly so, allergic reaction to anesthesia were all reviewed. Alcohol preparation was used. Anesthesia obtained with 0.5% lidocaine without epinephrine. A??shave biopsy was obtained and the specimen was sent to pathology for histologic evaluation.??Hemostasis obtained. (AlCl and/or electrocautery). ??Vaseline and bandaid were applied. Wound care was reviewed.There were no complications; the pt. tolerated the procedure well. # Eczema - much improved since last visit, subtle ill defined pink patches on the lower legs, significantly improved from prior. - Continue Rx: Triamcinolone 0.1% ointment (454g) apply twice daily to affected areas of the body for 14 days, then take 1 week off, repeat as needed. - Discussed risks of prolonged topical corticosteroid use including atrophy, striae, hypopigmentation, tachyphylaxsis. Instructed to avoid face, intertriginous, or other thin-skinned highly penetrable areas (eg, the perineum, axillae). - Recommend??sensitive skin care:??Dove fragrance free bar soap (folds/feet only), Cerave??SA cream/Vanicream/Aveeno daily moisturizer within a few minutes of getting out of shower, emphasized the importance of using a moisturizer every single day even when he is not itchy, lukewarm showers # Harris Angiomas- Multiple 0.2-0.4cm bright red, well-demarcated papules on the abdomen - Reassured of benign nature # Stucco Keratosis: On the abdomen, warty stuck on hyperkeratotic papules. Stucco keratoses, sometimes referred to as barnacles, are papular warty lesions resembling seborrheic keratoses that commonly occur on the lower legs and feet of the elderly, particularly in men. There is no racial predilection. They are benign and usually asymptomatic. - Pt reassured # Benign Appearing Nevi: On the trunk and extremities, multiple, 0.3-0.5cm, medium-brown, evenly-pigmented macules and papules. - Reassurance, discussed importance of ABCDE's and monthly self exams #Actinic Keratosis: very thin 0.2-0.3cm scaly irregular pink papule located on left zygoma - joint decision to monitor today, plan to treat with LN2 at follow up. RTC: Pending pathology, otherwise in 3 months for FSE. The following photos were obtained with patient consent: Note initiated by LILLY Lambert. I, LILLY Lambert, have performed the documentation for this encounter in the presence of and acting as a scribe for Rohan Rider MD. I performed the services which were documented by the scribe, and I agree with the accuracy of the documentation in this encounter. Rohan Rider MD Reviewed and signed by: Rohan Rider MD Resident in Dermatology [facility] Patient seen and evaluated with staff r d intern: Fracisco Anand MD Section of Dermatology [facility] * Fracisco Anand MD - 09/26/2019 1:00 PM EDT I directly supervised Dr. Rider during this office visit. Dr. Rider presented the history and physical exam to me. I then saw and examined this patient with Dr. Rider . We reviewed the history and pertinent details and I confirmed the physical findings. I agree with the details of the historyand physical exam as documented in Dr. Rider's note. FRACISCO ANAND MD Staff Physician * Rohan Rider MD - 09/26/2019 1:00 PM EDT Deepti, please schedule for ED&C of left shoulder. Jennifer, please schedule for Mohs of lesion on left cheek. Thanks! AJ Called patient, relayed results of biopsies as outlined below. Recommended Mohs for lesion on cheekand recommended ED&C vs WLE for lesion on the left shoulder. Joint decision between patient andphysician to pursue Mohs for lesion A and ED&C for lesion B. Lesions C&D require no furthertreatment at this time and can be followed clinically. DIAGNOSIS A. Skin, left cheek, shave biopsy: - ??Basal cell carcinoma, superficial and nodular type, present at the peripheral and ??deep specimen edges B. Skin, left posterior shoulder, shave biopsy: - ??Basal cell carcinoma, nodular type, extending to the deep specimen edge C. 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 Skin, mid thoracic back, shave biopsy: - ??Compound melanocytic nevus, irritated and inflamed, transected at the base and ??peripheral specimen edges (see discussion) documented in this encounter Plan of Treatment Not on file documented as of this encounter Procedures Procedure Name Priority Date/Time Associated Diagnosis Comments SPECIMEN TO PATHOLOGY Routine 09/26/2019 2:24 PM EDT Neoplasm of uncertain behavior of skin SPECIMEN TO PATHOLOGY Routine 09/26/2019 2:24 PM EDT Neoplasm of uncertain behavior of skin SPECIMEN TO PATHOLOGY Routine 09/26/2019 2:24 PM EDT Neoplasm of uncertain behavior of skin SPECIMEN TO PATHOLOGY Routine 09/26/2019 2:24 PM EDT Neoplasm of uncertain behavior of skin SURGICAL PATHOLOGY REPORT Routine 09/26/2019 1:10 PM EDT documented in this encounter Results * Specimen to Pathology (09/26/2019 2:24 PM EDT) AP Specimen 09/26/2019 2:24 PM EDT 09/26/2019 5:31 PM EDT Narrative [facility] - 09/26/2019 5:31 PM EDT Specimen requisition ordered. ??Separate Pathology report to follow Resulting Agency Comment Spec In Lab Fracisco Anand MD PATHOLOGY/[place] [address] * Specimen to Pathology (09/26/2019 2:24 PM EDT) AP Specimen 09/26/2019 2:24 PM EDT 09/26/2019 5:31 PM EDT Narrative [facility] - 09/26/2019 5:31 PM EDT Specimen requisition ordered. ??Separate Pathology report to follow Resulting Agency Comment Spec In Lab Fracisco Anand MD PATHOLOGY/[place] [address] * Specimen to Pathology (09/26/2019 2:24 PM EDT) AP Specimen 09/26/2019 2:24 PM EDT 09/26/2019 5:31 PM EDT Narrative [facility] - 09/26/2019 5:31 PM EDT Specimen requisition ordered. ??Separate Pathology report to follow Resulting Agency Comment Spec In Lab Fracisco Anand MD PATHOLOGY/[place] [address] * Specimen to Pathology (09/26/2019 2:24 PM EDT) AP Specimen 09/26/2019 2:24 PM EDT 09/26/2019 5:31 PM EDT Narrative [facility] - 09/26/2019 5:31 PM EDT Specimen requisition ordered. ??Separate Pathology report to follow Resulting Agency Comment Spec In Lab Fracisco Anand MD PATHOLOGY/CYTOLOGY Bhavna JACK [facility] [place] [address] * Surgical Pathology Report (09/26/2019 1:10 PM EDT) Final Diagnosis [id number] ? Location: [facility] The signing pathologist has (i) examined the relevant preparation(s) for the specimen(s) and (ii) rendered or confirmed the diagnosis(es). . ?Surgical Pathology DIAGNOSIS A. Skin, left cheek, shave biopsy: - ??Basal cell carcinoma, superficial and nodular type, present at the peripheral and deep specimen edges B. Skin, left posterior shoulder, shave biopsy: - ??Basal cell carcinoma, nodular type, extending to the deep specimen edge C. 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 Skin, mid thoracic back, shave biopsy: - ??Compound melanocytic nevus, irritated and inflamed, transected at the base and peripheral specimen edges (see discussion) Electronically signed by: ??Asmita Tejada MD Verified: ??10/01/2019 ?Dermatopathologist Performed at: ??-[facility] Dept. of Pathology, [place], [place] DISCUSSION C. Left scapula : Carcinoma is not seen with examination of multiple deeper levels and CK5 immunostain. SOX10 highlights background melanocytes. The present findings may represent sequelae of a ruptured follicle or follicular cyst. ? Clinicopathologic correlation is recommended. D. Mid thoracic back : ??Sections show a compound melanocytic proliferation in association with acanthotic epidermis with features of irritation and spongiotic changes. The associated dermal stroma shows fibrotic appearance with dense lymphohistiocytic inflammation and some features suggestive of regression-related changes. The melanocytes show lentiginous single cell and focally nested pattern within the epidermis. The dermal melanocytes show maturation towards the base. The Ki67/Melan-A does not reveal significant increase in the proliferation index among melanocytes. PRAME is essentially negative. The findings support the above diagnosis. Close clinical follow up should be considered. ?If there is any evidence of repigmentation or regrowth, consideration should be given to further clinical evaluation and repeat sampling. ADDITIONAL STUDIES C, D. ??Multiple step-leveled sections were reviewed. D. PAS/Fungus stain is negative for fungal organisms. This case was also reviewed by an additional intradepartmental dermatopathologist for consensus diagnosis. Immunohistochemistry Studies: Formalin-fixed, paraffin-embedded tissue sections are studied using the polymer technique with appropriate positive and negative controls. ?These IHC studies provide the pathologist with adjunctive diagnostic information. Antibody specificity has been verified by testing antibodies on a series of in-house tissues with known immunohistochemical performance characteristics. The clinical interpretation of any antibody positive staining or its absence is evaluated within the context of clinical presentation, morphology, histopathological criteria and other diagnostic tests. SPECIMEN(S) SUBMITTED A - left cheek (A), skin shave biopsy ONLY (1) . SPECIMEN(S) SUBMITTED B - left posterior shoulder (B), skin shave biopsy ONLY (1) C - left scapula (C), skin shave biopsy ONLY (1) D - mid thoracic back (D), skin shave biopsy ONLY (1) CLINICAL INFORMATION A - On the left cheek there is a 2-3 mm shiny pink papule. BCC vs other B - On the left posterior shoulder there is a 7 mm shiny pink papule. BCC vs other C - On the left scapula there is a 8 mm hyperkeratotic pink plaque. SCC vs BCC vs other D - On the mid thoracic back there is a 1.2 cm hyperkeratotic pink papule. SCC vs other SPECIMEN PROCESSING A - Labeled/Fixative: Left cheek, formalin. Quantity/Size: ??Single, 0.5 x 0.3 cm. Tissue Description: ovoid roy-white skin shave biopsy left posterior shoulder. Sections/Processing: Inked, bisected and entirely submitted in 1 cassette labeled A1. B - Labeled/Fixative: Left posterior shoulder, formalin. Quantity/Size: ??Single, 0.8 x 0.7 cm. Tissue Description: ovoid, irregular yost-white skin shave with a central 0.5 x 0.4 cm slightly domed yost lesion. Sections/Processing: Inked, trisected and entirely submitted in 1 cassette labeled B1. C - Labeled/Fixative: Left scapula, formalin. Quantity/Size: ??Single, 1.0 x 0.6 cm. Tissue Description: discoid yost-white skin shave with a central 0.3 x 0.2 cm pink macule. Sections/Processing: Inked, serially sectioned and entirely submitted in 2 cassettes as follows: ?C1: ??Tips ?C2: ??Body D - Labeled/Fixative: Mid thoracic back, formalin. Quantity/Size: ??Single, 1.0 x 0.6 cm. Tissue Description: discoid roy-white skin shave with a central 0.4 x 0.3 cm roy irregular yost macule. Sections/Processing: Inked, serially sectioned and entirely submitted in 2 cassettes as follows: ?D1: ??Tips ?D2: ??Body ??shb 10/01/2019 1:49 PM EDT [facility] SPECIMEN FROM SKIN / Unknown 09/26/2019 1:10 PM EDT 09/26/2019 1:10 PM EDT SPECIMEN FROM SKIN / Unknown 09/26/2019 1:10 PM EDT 09/26/2019 1:10 PM EDT SPECIMEN FROM SKIN / Unknown 09/26/2019 1:10 PM EDT 09/26/2019 1:10 PM EDT SPECIMEN FROM SKIN / Unknown 09/26/2019 1:10 PM EDT 09/26/2019 1:10 PM EDT Rohan Osborne MD PATHOLOGY/CYTOLOGY ORDERABLES [facility] [place] [address] documented in this encounter Visit Diagnoses Diagnosis [place] (actinic keratosis) Actinic keratosis Neoplasm of uncertain behavior of skin Harris angioma Nevus, non-neoplastic Eczema, unspecified type Stucco keratoses documented in this encounter Care Teams Pbx Technician Relationship Specialty Start Date End Date Mickie Byrne PA [address] [place] [address] PCP - General Family Medicine 09/02/17 01/01/20 documented as of this encounter
--- OUTSIDE RECORDS SUMMARY | 2024-04-16 11:44 | XMS_ITS | Encounter Summary ---
Author Organization [facility] Address [facility] [place] [address] Care Team Providers Care Environmental Field Team Member Name Role Phone Mickie Byrne Primary Care Provider [phone] Reason for Visit * Reason Comments Eczema * Consultation (Routine) - Closed Specialty Diagnoses / Procedures Referred By Contmike t Referred To Contact Dermatology Diagnoses eczema Mickie Byrne PA [address] [place] [address] [facility] [address] [place] [address] Referral ID Status Reason Start Date Expiration Date V isits Requested Visits Authorized [id number] Closed Consult, Test & [facility] 09/05/2017 09/05/2018 1 1 Encounter Details Date Type Department Care Team (Late st Contact Info) Description 10/14/2017 10:00 AM EDT Office Visit Dermatology at [facility] [address] [place] [id number] Otis Ibrahim MD [facility] [address] [place] [address] Missy Azevedo PA [facility] [address] [place] [address] Nummular dermatitis; Benign neoplasm of skin adnexa; Dermatitis Social History Tobacco Use Types Packs/Day Years Used Date Smoking Tobacco: Every Day Cigarettes Smokeless Tobacco: Never Sex and Gender Information Value Date Recorded Sex Assigned at Not on file Gender Identity Not on file Sexual Orientation Not on file documented as of this encounter Patient Instructions * Patient Instructions* Aliza Burris V - 10/14/2017 10:00 AM EDT Skin Care Recommendations for Sensitive Skin - Take no more than one short shower per day with lukewarm water (avoid hot water) - Use soap sparingly and only to dirty/sweaty areas - Moisturize immediately after the shower while the skin is still damp - Minimize the use of personal care products, and use only bland, fragrance-free products such as: ?? Soap: Dove fragrance-free bar soap for sensitive skin - Discontinue using bag balm - We recommend you wear compression stockings daily and elevate the legs when possible. - We also recommend you wear gloves when you may be in contact or working with any chemicals. - Rx: Augmented betamethasone ointment Apply to itchy/affected areas on the body twice daily for 2 weeks. Then apply twice daily on weekends only (Tue-Tue) - Rx: Triamcinolone ointment After 2 weeks of using augmented betamethasone only, apply to itchy/affected areas on the body twice daily on week days (Mon-Fri). documented in this encounter Progress Notes * Missy Azevedo PA - 10/14/2017 10:00 AM EDT DERMATOLOGY - NEW PATIENT NOTE Date of service: 10/14/2017 Uli Barone : 1955, 62 y.o. CC: Chief Complaint Patient presents with ??? Eczema HPI: Uli Barone is a 62 y.o. male referred by Mickie Byrne for a rash involving the lower legs and hands. Past treatments include augmented Diprolene in [address] Hartmann and was diagnosed with nummular dermatitis. He has been using triamcinolone most recently as well as bag balm and other ointments/salves that he has. Reports his rash got much worse 4 years ago with his divorce. Denies known contact allergies including reactions to metal/nickel. Denies history of atopy. 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 Admits he has lower leg swelling at the end of the day. 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 Relevant Skin History: - Okay to leave detailed message with results? Yes - None Family History: Melanoma: None Relevant Social History: - Medications: Current Outpatient Prescriptions Medication Sig Dispense Refill ??? augmented betamethasone dipropionate (DIPROLENE) 0.05 % ointment Apply topically 2 times daily.Use for 2-3 weeks as needed. 30 g 1 ??? triamcinolone (KENALOG) 0.1 % ointment 1 Appl(s), Top, Twice daily No current facility-administered medications for this visit. [...] the exception of the findings listed below. Patient declined genital exam. Diagnosis/Skin findings/Assessment/Plan: 1. Nummular eczema with stasis dermatitis/irritant component - Forearms: follicular pustules and crusted papules. Bilateral dorsal hands, shins: demarcated eczematous plaques. - Discussed condition with the patient, reassured that exam not c/w psoriasis. - Discontinue using bag balm. - Reviewed sensitive skin care. Provided handout with recommendations. - Recommended patient wear compression stockings daily and elevate the legs when possible. - Refill Rx: Augmented betamethasone ointment Apply to itchy/affected areas on the body twice dailyfor 2 weeks. Then apply twice daily on weekends only (Sat-Sun) - Refill Rx: Triamcinolone ointment After 2 weeks of augmented betamethasone only, apply to itchy/affected areas on the body twice daily on week days (Mon-Fri). 2. Benign adnexal neoplasm vs milia - Right cheek: 4mm centrally keratotic pink and yellow telangiectatic papule. - Reassured benign. - Continue to clinically monitor. LOS: [id number] RTC: 6 weeks for eczema follow up. Scheduled upon exiting. Note initiated by Nicole Almanza CMA. I, Aliza Burris, have performed the documentation for this encounter in the presence of and acting as a scribe for Missy Azevedo PA-C (Bri). I performed the services which were documented by the scribe, and I agree with the accuracy of the documentation in this encounter. Missy Azevedo PA-C (Bri) Reviewed and signed by Missy Azevedo PA-C [facility] Patient seen in conjunction with staff photographic artist: Otis Ibrahim MD Section of Dermatology [facility] * Otis Ibrahim MD - 10/14/2017 10:00 AM EDT Clinically skin findings are more consistent with an eczematous process than with psoriasis. Patient seen in conjunction with Missy Azevedo PA-C (Bri) Signed by: OTIS IBRAHIM MD Section of Dermatology [facility] documented in this encounter Plan of Treatment Not on file documented as of this encounter Visit Diagnoses Diagnosis Nummular dermatitis Contact dermatitis and other eczema, due to unspecified cause Benign neoplasm of skin adnexa Dermatitis Contact dermatitis and other eczema, due to unspecified cause documented in this encounter Care Teams Environmental Field Team Member Relationship Specialty Start Date End Date Mickie Byrne PA [address] [place] [address] PCP - General Family Medicine 09/02/17 01/01/20 documented as of this encounter
--- OUTSIDE RECORDS SUMMARY | 2024-04-16 11:44 | XMS_ITS | Encounter Summary ---
Author Organization [facility] Address [facility] [place] [address] Care Team Providers Care Drafter Name Role Phone Mickie Byrne Primary Care Provider [phone] Reason for Visit * Reason Comments Basal Cell Carcinoma Encounter Details Date Type Department Care Team (Latest Contact Info) Description 07/31/2019 9:30 AM EDT Procedure visit Dermatology at [facility] [address] [place] [address] Ernie Pop MD [facility] [address] [place] [address] Basal cell carcinoma of neck Social History Tobacco Use Types Packs/Day Years Used Date Smoking Tobacco: Every Day Cigarettes Smokeless Tobacco: Never Sex and Gender Information Value Date Recorded Sex Assigned at Not on file Gender Identity Not on file Sexual Orientation Not on file documented as of this encounter Last Filed Vital Signs Vital Sign Reading Time Taken Comments Blood Pressure 152/63 07/31/2019 9:16 AM EDT Pulse 74 07/31/2019 9:16 AM EDT Temperature - - Respiratory Rate - - Oxygen Saturation - - Inhaled Oxygen Concentration - - Weight - - Height - - Body Mass Index - - documented in this encounter Patient Instructions * Patient Instructions* Natalee Bobby CMA - 07/31/2019 9:30 AM EDT Your staff Mohs surgeon today was Ernie Pop MD, PhD. FLAP CLOSURE Your wound(s) was repaired by a flap closure. A flap closure is rearrangement of skin tissue. A flap is performed when the area has too much tension, or when a simple side to side closure cannot be performed, or when a flap would lead to better cosmetic outcome with a flap. Caring for a flap is very similar to caring for regular side to side stitches, except more caution should be used when cleaning the incisions as some flaps can be delicate. Instructions for wound care are below. Please keep in mind these are general guidelines. When in doubt, or if you have more specific questions, please call us. Keep below as a reference while caring for your wound(s): After Surgery 1. Avoid tobacco, smoking/vapors, and cannabis (marijuana) for at least 3 weeks after your surgery.Smoking impairs healing and leads to worse scarring. Even cutting back on tobacco is helpful if youcannot abstain completely. 2. Do not drink alcohol for roughly 3 days as this can slow healing or cause bleeding. 3. Do not participate in athletic activities while you have stitches in place. Athletic activity raquel relative term, but this is considered to be anything that could potentially raise your heartrate or blood pressure. Elevating your heart rate and blood pressure can increase risks of swelling, bleeding, wound opening, or lead to worse scarring. Walking at a leisurely pace is fine for most people, but not if you are going walking for the purpose of exercise. 4. Do not lift anything heavier than 10 pounds until your sutures are removed. 5. Some copywriter may need to be delayed or delegated such as vacuuming, mowing the lawn, snow shoveling, or caring for young children that need to be carried/lifted. Working any major muscle groups increases your heart rate and can increasing bleeding. 6. Avoid swimming, hot tubs, and direct water pressure for 3 weeks after surgery. You may shower once your initial bandage comes off in 48 hours, however. 7. Avoid antibiotic ointments such as triple [...] 2 months. 10. Your wound will appear completely healed soon after sutures are removed (about 1 week), but incisions can remain bright red for several weeks. Then the scarring and healing process continues under the skin for 6 months up to 2 years. The scar may become less red, less firm, and more subtle during this time but the rate of improvement varies depending on the person. Most redness, discoloration, bumpiness resolves by 6 months. 11. Keep your follow-up appointments and make sure to continue to have your skin checked, as often as is recommended by your band aid machine operator, for new skin cancers. This is once per year for most patients. 12. Your can expect your scar to be red for several weeks with gradual fading of the redness. The scar will also be raised and lumpy until the dissolvable sutures under the skin get absorbed by your body which can take 3-4 months. The scar will flatten eventually. 13. Occasionally, about 20% of the time, on the face, the stitches under the skin can spit out ofthe incision to the surface. It can start out looking like a pimple or blemish directly on your incision. Sometimes it can look like a small mini infection so please let us know before you [...] your incision with a bandage when outdoors, or wearing SPF 30 to 50 sunscreen (broad spectrum). 15. Sometimes after your sutures are removed, your incision may still be healing for 1 more week. Because of this, avoid make-up and sunscreen until approximately 2 weeks after surgery, or sooner if your skin edges look completely sealed. 16. Flaps may sometimes thicken or become firm several weeks after surgery. This is expected in some types of flaps and in certain locations on the face. This is called hypertrophy. If this occurs, at your wound check, you may need small amounts of medicine injected into your flap to help it softenor thin. This will be determined at your follow-up visit. 17. Flaps and skin surgery in general can lead to mild sensation loss (numbness) in the area of surgery. Massage starting at 8 weeks after surgery can help. 18. Bruising. It is very common to have bruising in swelling in any area of the face, even in areasthat are distant from where we did surgery. This is especially common 24 to 48 hours after surgery when fluid and swelling shifts around in the face. For example, surgery on the forehead, temples, orcheeks often leads to eyelid swelling of both eyes, black eyes, or dark purple bruising. This is expected in most patients and will gradually resolve. However, if you have severe pain not resolvingwith over the counter medicine, please call us. You can use ice packs or a bag of frozen peas for 15-20 minutes 3-4 times daily to areas of swelling on the face; use caution not to put the icy item di rectly on your incision, directly onto your skin as this can damage skin, and avoid prolonged use more than 20 minutes. The best way to use ice packs is over the bandage, or a light cloth/paper towelbetween the ice pack and your skin. You can ice for as many days as needed until swelling has resolved. Wound Care ??? Gently remove your initial bandage (after 48 hours from surgery). It is normal to have swellingand bruising. ??? Begin wound care as below. ??? If your initial bandage only stayed on for 24 hours (for example, falls off sooner), this is okay. Resume your wound care and bandaging instructions as below. ??? Change your bandage once a day (and whenever it becomes wet or soaks through) until your sutures are removed. If you have absorbable sutures, you do wound care for 1 week and then stop. ??? For bandage changes: o Wash hands with soap and water, or use gloves that you can purchase at a local pharmacy or drug store. o Clean the surgical area with cotton-tipped swabs or soft gauze dipped in soapy water (recommend liquid soap in clean room temperature water). Roll the cotton swab over the incision with soapy water, then with plain water, and then gently pat dry. Do not scrub the area with a washcloth. Do not putdirect shower water pressure onto your wound. Do not pick off any scabs. It is okay to allow soapy w ater to run over your wound in the shower, however. o If you cannot remove any bloody or crusted areas, you may soak the area with wet gauze first for 15 to 20 minutes to help soften it o Pat the area dry with clean gauze or cotton swabs. Do not rub. o Use a cotton swab to apply a generous layer of petrolatum over the incision lines and any open-wound areas. o Make sure your tube or jar of petrolatum is new or unused to prevent prior contamination from entering your wound. Avoid double dipping. o After applying petrolatum, use a clean nonstick gauze or other nonstick dressing, such as Telfa. This may be purchased over the counter at a drug store. Do not use regular gauze as it will stick toyour wound and can peel off healing skin with bandage changes. o Secure the bandage with paper tape or a bandage. Band-aids are okay, but typically have more adhesive that can irritate the skin compared to paper tape. This can be purchased at a drug store. o Continue this wound care daily until stitches are removed. This is typically for 5-7 days. If youhad absorbable stitches used, you will do wound care for 1 week then stop. Keep in mind that if you do not want to use a bandage at all due to difficulty, irritation of skin,cost, or inconvenience --- you can certainly avoid bandages altogether. However, it is imperative that you continue with topical petrolatum (plain, fragrance-free). This may need to be applied several times daily if it gets wiped off, washed off, or dries out. Things to purchase for wound care: -Nonstick gauze -A tube or tub of petrolatum jelly (fragrance-free, no dye, not lotion) -paper tape -cotton swabs -gloves (optional) -Dial or other antibacterial liquid soap If you have specific questions or instructions, it can be written/typed by your nurse or doctor here: Antibiotics: If you were given antibiotic prescription, it is important to start them the evening of your surgery date. Most patients do not need antibiotics after surgery. For pain: Most patients of different ages do not require pain medications. If you do feel soreness or pain, start by taking over the counter extra strength acetaminophen (up to 3000 mg in a 24 hour period). Generally, we like you to avoid NSAIDS (non-steroid anti-inflammatory drugs such as ibuprofen) for thefirst 48 hours after surgery as this can increase risk of bleeding. However, if acetaminophen is not helping with pain, you can alternate acetaminophen with iburpofen (ibuprofen 400 mg every 4 hours.) Ice packs over your bandage without getting your bandage wet can also help with pain and swelling,for up to 20 minutes at a time (20 minutes off between icing sessions). Frozen peas work well as ice packs. THIS [...] it. If after hours, please call the sonoscope operator or [phone] and ask for the band aid machine operator on-call. If you have any non-urgent questions or concerns, please feel free to call my office or contact me through our patient portal, [email or web address], at [email or web address] How to contact us during business hours Dermatology at [facility] Road: Mohs scheduling or Mohs follow-up appointments: [phone] documented in this encounter Progress Notes * Ernie Pop MD - 07/31/2019 9:30 AM EDT Images from the original note were not included. Summary of Procedure(s): Site: left posterior neck Tumor Type: Basal Cell Carcinoma Stages to clear tumor: 2 Repair: advancement flap Site: left lateral neck Tumor Type: basal cell carcinoma Stages to clear tumor: 2 Repair: advancement flap Site: left lower neck Tumor Type: basal cell carcinoma Stages to clear tumor: 1 Repair: advancement flap Images: The patient was asked to call with any issues and is aware that I am available 06/12 should questions arise. Ernie Pop MD PhD Mohs Micrographic Surgery and Dermatologic Oncology Section of Dermatology, Department of Surgery Mohs consultation and preoperative note (H&P) Patient Name: Uli Barone Age: 64 y.o. Date of : 1955 Today's Date: 07/31/2019 REFERRING PROVIDER: Rohan Rider CC: Mohs micrographic surgery for treatment of a cutaneous tumor HPI: Uli Barone is a 64 y.o. male presenting for biopsy-proven basal cell carcinoma location on the left posterior neck, left lateral neck and left lower neck. The dermatologic preoperative information sheet was reviewed with pertinent positive and negative as below. DERMATOLOGIC PRE-OPERATIVE EVALUATION AND REVIEW OF SYSTEMS History of Mohs surgery? no Pacemaker/Defibrillator? no Joint replacement or other implantable devices (e.g. Cochlear implant)? If yes then when? no Do you take a blood thinner? No History of organ transplant? no History of artificial valve or stroke? no History of liver disease or bleeding disorder? no Do you have any medical problems that may affect your upcoming surgery? no Do you have any concerns regarding your upcoming surgery? no We ask patients to discontinue Fish oil/Multivitamin/Vit E/?? supplements and natural medicines not prescribed by a physician 1 week prior to surgery. SOCIAL HISTORY: Makes Own Decisions Yes Hearing aid or other devices: No Relevant travel history or future plans: None Tobacco use (amount per day, type of tobacco.): yes 1ppd Do you have any physical limitations that may affect your surgery?: no PAST MEDICAL HISTORY Past medical history reviewed PAST SURGICAL HISTORY Past surgical history reviewed ALLERGIES: Allergies reviewed MEDICATIONS: Medications reviewed VITAL SIGNS: There were no vitals taken for this visit. PHYSICAL EXAMINATION: General: patient is awake, alert, oriented and in no acute distress. Skin: Focused examination of surgical site(s) performed which shows a well healed biopsy site with surrounding poorly defined pearly plaque. PHYSICIAN REVIEW OF REPORTS, RECORDS, IMAGES: 1) The accompanying pathology report(s) associated with aforementioned biopsy slide(s) were/was also reviewed. Assessment: Uli Barone is a 64 y.o. male presenting for: 1. Biopsy-proven basal cell carcinoma, superficial and nodular located on the left posterior neck. 2. Biopsy-proven basal cell carcinoma, superficial and nodular located on the left lateral neck. 3. Biopsy-proven basal cell carcinoma, superficial and nodular located on the left lower neck. Plan: 1. Findings from the biopsy report, [...] and follow up with his or her band aid machine operator or other skin provider. 6. Discussed avoiding direct sun exposure to scars for best cosmetic result. Summary of Procedure(s): 1. Please see operative report for complete details. Briefly, the tumor located on the left posterior neck 2 stages, the tumor on the left lateral neck cleared in 2 stages and the tumor on the left lower neck cleared in 1 stage. The final defects were combined and repaired by advancement flap. All absorbable sutures were used and the patient can return as needed. The patient was asked to call with any issues and is aware that I am available 06/12 should questions arise. Ernie Pop MD PhD Mohs Micrographic Surgery and Dermatologic Oncology Section of Dermatology, Department of Surgery * Ernie Pop MD - 07/31/2019 9:30 AM EDT Mohs micrographic Surgery Operative Report Site #1 - left posterior neck Patient name: Uli Barone : 1955 Date: 07/31/2019 Staff Surgeon: Ernie Pop MD PhD Nursing/College Athletic Director(s): Radha Mccarty RN, Natalee Bobby CMA, Dalia Smiley RN, Fe Suazo LPN, Ayah Richard CMA Keg Varnisher (s): Brit Daniels Pre-operative diagnosis: Basal Cell Carcinoma, superficial/ nodular Post-operative diagnosis: Same Location/Site: left posterior neck Procedure: Mohs micrographic surgery Indication(s) for Mohs micrographic surgery: Anatomic location for tissue conservation Stages: 2 Preoperative size of tumor: 1.0 x 0.8 cm Stage I The nature and purpose [...] The site was confirmed with the patient/authorized senior outside sales representative/referring physician and/or a photograph form time of [...] as basal cell carcinoma on section A1 (see section number on map). Stage II [...] deep or outer border of the sections. Depth of excision subcutaneous tissue Final defect size: 2.0 x 1.6 cm Ernie Pop MD PhD Mohs Micrographic Surgery and Dermatologic Oncology Section of Dermatology, Department of Surgery Mohs micrographic Surgery Operative Report Site #2 - left lateral neck Patient name: Uli Barone : 1955 Date: 07/31/2019 Staff Surgeon: Ernie Pop MD PhD Nursing/College Athletic Director(s): Radha Mccarty RN, Natalee Bobby CMA, Dalia Smiley RN, Fe Suazo LPN, Ayah Richard CMA Keg Varnisher (s): Brit Daniels Pre-operative diagnosis: Basal Cell Carcinoma, superficial/ nodular Post-operative diagnosis: Same Location/Site: left lateral neck Procedure: Mohs micrographic surgery Indication(s) for Mohs micrographic surgery: Anatomic location for tissue conservation Stages: 2 Preoperative size of tumor: 1.8 x 1.1 cm Stage I The nature and purpose [...] The site was confirmed with the patient/authorized senior outside sales representative/referring physician and/or a photograph form time of [...] identified as basal cell carcinoma on section A2 (see section number on map). Stage [...] deep or outer border of the sections. Depth of excision subcutaneous tissue Final defect size: 2.0 x 2.5 cm Ernie Pop MD PhD Mohs Micrographic Surgery and Dermatologic Oncology Section of Dermatology, Department of Surgery Mohs micrographic Surgery Operative Report Site #3 - left lower neck Patient name: Uli Barone : 1955 Date: 07/31/2019 Staff Surgeon: Ernie Pop MD PhD Nursing/College Athletic Director(s): Radha Mccarty RN, Natalee Bobby CMA, Dalia Smiley RN, Fe [facility] FINISHING FRAME RUNNER, Ayah Richard [facility] Keg Varnisher (s): Brit Daniels Pre-operative diagnosis: Basal Cell Carcinoma, superficial/ nodular Post-operative diagnosis: Same Location/Site: left lower neck Procedure: Mohs micrographic surgery Indication(s) for Mohs micrographic surgery: Anatomic location for tissue conservation Stages: 1 Preoperative size of tumor: 2.3 x 1.0 cm Stage I The nature and purpose [...] The site was confirmed with the patient/authorized senior outside sales representative/referring physician and/or a photograph form time of [...] the defect after complete tumor removal was 3.4 x 2.5 cm, extending to level of subcutaneous tissue. Ernie Pop MD PhD Mohs Micrographic Surgery and Dermatologic Oncology Section of Dermatology, Department of Surgery Repair Report (Flap) Patient name: Uli Barone Staff Surgeon: Ernie Pop MD PhD Director Operating(s): same as above hair assistant: Radha Mccarty RN Date: 07/31/2019 Clinical Diagnosis: skin and soft tissue defect status post Mohs micrographic surgery Location/Site: Indication: repair of wound with restorationist of anatomy/function Defect size to be repaired: left posterior neck/ left lateral neck/ left lower neck Procedure: Advancement flap repair (tissue rearrangement) Final flap size: 4 x 4 cm 2 Procedure Details: Due to the size and location of the defect resulting from the complete removal of the tumor, the postoperative risk of hemorrhage, infection, and the possibility of serious deformity from scarring, and in order to restore proper function and prevent loss of function, the defect was closed with an advancement flap. The nature and purpose of the procedure, associated risks, possible consequences, complications andalternative methods of treatment were explained to the patient in detail. An informed consent was obtained. Local anesthesia was obtained with a solution of 1-% lidocaine with 1:100,000 epinephrine. The surgical site was prepped and draped in the usual sterile manner. Any beveled edges of the defect were repaired with a scalpel blade. The flap was created by making incisions along the posterior neck. The flap and the wound edges were undermined, and hemostasis was obtained with electrocoagulation. The flap was advanced onto the defect. The skin edges were closed using 3-0 and 4-0 Monocryl dermal/subcutaneous sutures and 5-0 fastgut skin sutures. Final flap size: 4 x 4 cm2. Estimated blood loss: Minimal. Complications: None. Wound care: Routine. Follow up as needed. The patient was discharged in good condition. Total local anesthesia with 1% lidocaine with 1:100,000 epinephrine used: 15cc Total local with 0.25% bupivacaine with 1:100,000 epinephrine used: 6cc Ernie Pop MD PhD Mohs Micrographic Surgery and Dermatologic Oncology Section of Dermatology, Department of Surgery Note initiated by Radha Mccarty RN. Radha Mccarty RN has performed the documentation for this encounter in the presence of and acting as a scribe for Dr. Pop I performed the above scribed service and agree with the accuracy of the documentation in this encounter. Reviewed and signed by: Ernie Pop Dermatology [facility] documented in this encounter Plan of Treatment Not on file documented as of this encounter Visit Diagnoses Diagnosis Basal cell carcinoma of neck Basal cell carcinoma of scalp and skin of neck documented in this encounter Care Teams Drafter Relationship Specialty Start Date End Date Mickie Byrne PA [address] [place] [address] PCP - General Family Medicine 09/02/17 01/01/20 documented as of this encounter
--- OUTSIDE RECORDS SUMMARY | 2024-04-16 11:44 | XMS_ITS | Encounter Summary ---
Author Organization [facility] Address [facility] [place] [address] Care Team Providers Care Movie Producer Name Role Phone None Primary Care Provider Unavailabl e Encounter Details Date Type Department Care Team (Latest Contact Info) Description 07/01/2020 10:15 AM EST Clinical Support Dermatology at [facility] [address] [place] [address] Ernie Pop MD [facility] [address] [place] [address] Basal cell carcinoma of left yarsanism region Social History Tobacco Use Types Packs/Day Years Used Date Smoking Tobacco: Every Day Cigarettes Smokeless Tobacco: Never Sex and Gender Information Value Date Recorded Sex Assigned at Not on file Gender Identity Not on file Sexual Orientation Not on file documented as of this encounter Progress Notes * Radha Mccarty RN - 07/01/2020 10:15 AM EST Mohs consultation and preoperative note (H&P) Patient Name: Uli Barone Age: 65 y.o. Date of : 1955 Today's Date: 07/01/2020 REFERRING PROVIDER: Rohan Rider MD CC: Mohs micrographic surgery for treatment of a cutaneous tumor HPI: Uli Barone is a 65 y.o. male presenting for biopsy-proven basal cell carcinoma, superficial/early nodular location on the left yarsanism The dermatologic preoperative information sheet was reviewed with pertinent positive and negative as below. DERMATOLOGIC PRE-OPERATIVE EVALUATION AND REVIEW OF SYSTEMS History of Mohs surgery? Yes Pacemaker/Defibrillator? no Joint replacement or other implantable [...] limitations that may affect your surgery?: no documented in this encounter Plan of Treatment Not on file documented as of this encounter Visit Diagnoses Diagnosis Basal cell carcinoma of left yarsanism region Basal cell carcinoma of skin of other and unspecified parts of face documented in this encounter Care Teams Movie Producer Relationship Specialty Start Date End Date None None PCP - General 01/10/20 documented as of this encounter
--- OUTSIDE RECORDS SUMMARY | 2024-04-16 11:44 | XMS_ITS | Encounter Summary ---
Author Organization [facility] Address [facility] [place] [address] Care Team Providers Care Psychiatric Security Nurse Name Role Phone Mickie Byren Primary Care Provider [phone]- [phone] Reason for Visit * Reason Comments Basal Cell Carcinoma Encounter Details Date Type Department Care Team (Latest Contact Info) Description 10/16/2019 8:00 AM EDT Procedure visit Dermatology at [facility] [address] [place] [address] Ernie Pop MD [facility] [address] [place] [address] Basal cell carcinoma of left cheek; Basal cell carcinoma of left shoulder Social History Tobacco Use Types Packs/Day Years Used Date Smoking Tobacco: Every Day Cigarettes Smokeless Tobacco: Never Sex and Gender Information Value Date Recorded Sex Assigned at Not on file Gender Identity Not on file Sexual Orientation Not on file documented as of this encounter Last Filed Vital Signs Vital Sign Reading Time Taken Comments Blood Pressure 148/61 10/16/2019 8:09 AM EDT Pulse 86 10/16/2019 8:09 AM EDT Temperature - - Respiratory Rate - - Oxygen Saturation - - Inhaled Oxygen Concentration - - Weight - - Height - - Body Mass Index - - documented in this encounter Patient Instructions * Patient Instructions* Radha Mccarty RN - 10/16/2019 8:00 AM EDT Images from the original note were not included. Your staff surgeon today was Ernie Pop MD,PhD. Your wound(s) was repaired by [id number] stitches called a primary repair. You do [...] pounds for 5-7 days postoperatively. 5. Some crew foreman may need to be delayed or delegated [...] as often as is recommended by your counseling services manager, for new skin cancers. This is once [...] it. If after hours, please call the centrifugal drier operator or [phone] and ask for the counseling services manager on-call. If you have any non-urgent questions or concerns, please feel free to call my office or contact me through our patient portal, [employer], at [email or web address] How to contact us during business hours Dermatology at [facility] [address]: Mohs scheduling or Mohs follow-up appointments: [phone] Section of Dermatology Treatment and Wound Care Instructions Your Diagnosis Today: Basal Cell Carcinoma Your Treatment Today: Left posterior shoulder was treated with electrosurgery in which the cells were burned with an electric needle and scraped with a curette. Expected healing time is 2-3 weeks. Wound Care Instructions: 1. You will need to keep the wound dry and covered for 24 hours. 2. Remove bandage and clean the area with soap and water, gently pat the area dry. 3. Apply small amount of Vaseline to the area, cover with a Band-Aid until wound is healed. 4. A small amount of yellow drainage is part of normal healing, the wound is not considered healed until the drainage stops. It may take up to 3 - 4 weeks depending upon the area biopsied 5. Signs of infection include increased tenderness, pain, drainage or redness that becomes hard or swollen surrounding the wound 6. If bleeding occurs hold pressure for 15 minutes, if still bleeding than call our office 7. Please call our office if you have further questions or concerns. [phone]. After 5 PM, holidays and weekends call [phone] and ask for the College Instructor millstone cleaner. documented in this encounter Progress Notes * Ernie Pop MD - 10/16/2019 8:00 AM EDT Images from the original note were not included. Summary of Procedure(s): Site: left cheek Tumor Type: Basal Cell Carcinoma, superficial/ nodular Stages to clear tumor: 1 Repair: linear closure Images: The patient was asked to call with any issues and is aware that I am available 06/12 should questions arise. Ernie Pop MD PhD Mohs Micrographic Surgery and Dermatologic Oncology Section of Dermatology, Department of Surgery Mohs consultation and preoperative note (H&P) Patient Name: Uli Barone Age: 64 y.o. Date of : 1955 Today's Date: 10/16/2019 REFERRING PROVIDER: Rohan Rider CC: Mohs micrographic surgery for treatment of a cutaneous tumor HPI: Uli Barone is a 64 y.o. male presenting for biopsy-proven basal cell carcinoma, superficial/nodular location on the left cheek The dermatologic preoperative information sheet was reviewed with pertinent positive and negative as below. DERMATOLOGIC PRE-OPERATIVE EVALUATION AND REVIEW OF SYSTEMS History of Mohs surgery? yes Pacemaker/Defibrillator? no Joint replacement or other implantable [...] Allergies reviewed MEDICATIONS: Medications reviewed VITAL SIGNS: BP 148/61 (BP Location (NBP): Left arm, Patient Position: Sitting, BP Cuff Sizes: Adult (25-34 cm)) Pulse 86 PHYSICAL EXAMINATION: General: patient is awake, alert, oriented and in no acute distress. Skin: Focused examination of surgical site(s) performed which shows an erythematous scar corresponding with recent biopsy site. PHYSICIAN REVIEW OF REPORTS, RECORDS, IMAGES: 1) The accompanying pathology report(s) associated with aforementioned biopsy slide(s) were/was also reviewed. Assessment: Uli Barone is a 64 y.o. male presenting for: 1. Biopsy-proven basal cell carcinoma, superficial/ nodular located on the left cheek. Plan: 1. Findings from the biopsy report, my independent review of the histopathology from the biopsy slides, today's clinical exam, and other pertinent details [...] and follow up with his or her counseling services manager or other skin provider. 6. Discussed avoiding direct sun exposure to scars for best cosmetic result. Ernie Pop MD PhD Mohs Micrographic Surgery [...] Reviewed and signed by: Ernie Pop Dermatology [facility] * Ernie Pop MD - 10/16/2019 8:00 AM EDT Images from the original note were not included. Mohs micrographic Surgery Operative Report Patient name: Uli Barone : 1955 Date: 10/16/2019 Staff Surgeon: Ernie Pop MD PhD Nursing/Shift Production Associate(s): Radha Mccarty RN, Natalee Bobby CMA, Dalia Smiley RN, Fe CutleregandDaryl FULFILLMENT ASSOCIATE, Ayah Richard ENDLESS TRACK VEHICLE MECHANIC Childcare Aide (s): Brit Daniels Pre-operative diagnosis: Basal Cell Carcinoma, superficial/ nodular Post-operative diagnosis: Basal Cell Carcinoma Location/Site: left cheek Procedure: Mohs micrographic surgery Indication(s) for Mohs micrographic surgery: Anatomic location for tissue conservation Stages: 1 Preoperative size of tumor: 0.7 x 0.6 cm Stage I The nature and purpose [...] The site was confirmed with the patient/authorized business services sales representative/referring physician and/or a photograph form [...] the defect after complete tumor removal was 1.3 x 1.0 cm, extending to level of subcutaneous tissue. Ernie Pop MD PhD Mohs Micrographic Surgery and Dermatologic Oncology Section of Dermatology, Department of Surgery Repair Operative Report Clinical Diagnosis: 1.3 x 1.0 cm surgical defect secondary to Mohs microscopically controlled excision Location/Site: left cheek Indication: repair of wound for anatomic/functional hinduism Procedure: Intermediate linear closure of Mohs defect Field Clinical Engineer: Radha Mccarty RN Due to the size [...] Fast Absorbing Gut running and/or interrupted sutures. .The resulting intermediate linear closure measured 3.0 cm. The surgical site was cleaned and white petrolatum with a pressure dressing was applied. The patient tolerated the procedure well and without complications and was given both verbal and written instruction on postoperative wound care. Follow up as needed. The patient was discharged in good condition. Total local anesthesia with 1% lidocaine with 1:100,000 epinephrine used: 3cc Total local with 0.25% bupivacaine with 1:100,000 epinephrine used: 3cc Ernie Pop MD PhD Mohs Micrographic Surgery [...] Reviewed and signed by: Ernie Pop Dermatology [facility] OPERATIVE REPORT (Electrodesiccation and Curettage) Patient: Uli Barone : 1955 Date: 10/16/2019 STAFF SURGEON: Ernie Pop MD PhD LINUX UNIX ADMINISTRATOR: Radha Mccarty RN DATE OF SERVICE: 10/16/2019 INDICATION: Removal/Treatment of cutaneous malignancy PREOPERATIVE DIAGNOSIS: Basal cell carcinoma, nodular type POSTOP DIAGNOSIS: SAME ABOVE PREOPERATIVE SIZE: 1.1 x 1.1 cm SITE: Left posterior shoulder PROCEDURE Electrodesiccation and curettage Prior to the procedure, final verification of the patient identity and correct marked surgical sitewas performed. Procedural pause (timeout) performed. The anesthesia used was 1% lidocaine with 1:100,000 epinephrine. The skin was prepped in a sterile fashion with alcohol swab. The lesion was curetted with a 4-mm curette in three different directionsand electrodesiccation of the base was performed with clinical margins. This was repeated until clinically tumor-free margins were obtained. Postoperative size: 1.8 x 1.4 cm. Estimated blood loss: Minimal. Complications: None. Wound care: Routine. No specimen sent to pathology as the lesion has previously been biopsied and showed tumor. POST OPERATIVE MEDICATIONS: None Total local anesthesia: 3 cc FOLLOW UP: As needed; recommend annual clinical monitoring of site Ernie Pop MD PhD Mohs Micrographic Surgery and Dermatologic Oncology Section of Dermatology, Department of Surgery documented in this encounter Plan of Treatment Not on file documented as of this encounter Visit Diagnoses Diagnosis Basal cell carcinoma of left cheek Basal cell carcinoma of skin of other and unspecified parts of face Basal cell carcinoma of left shoulder documented in this encounter Care Teams Psychiatric Security Nurse Relationship Specialty Start Date End Date Mickie Byrne PA [address] [place] [address] PCP - General Family Medicine 09/02/17 01/01/20 documented as of this encounter
--- OUTSIDE RECORDS SUMMARY | 2024-04-16 11:44 | XMS_ITS | Encounter Summary ---
Author Organization [facility] Address [facility] [place] [address] Care Team Providers Care Bleacher Operator Name Role Phone Darling Gómez MD Primary Care Provider [phone] Encounter Details Date Type Department Care Team (Late st Contact Info) Description 06/15/2010 10:45 AM EST Office [place] [address] Yasmani Hartmann III, MD [facility] [address] [place] [address] Discharge Disposition: Home Social History Tobacco Use Types Packs/Day Years Used Date Smoking Tobacco: Never Assessed Sex and Gender Information Value Date Recorded Sex Assigned at Not on file Gender Identity Not on file Sexual Orientation Not on file documented as of this encounter Plan of Treatment Not on file documented as of this encounter Visit Diagnoses Not on filedocumented in this encounter Care Teams Bleacher Operator Relationship Specialty Start Date End Date Darling Gómez MD [facility] [address] [place] [address] [place] [address] PCP - General 06/15/10 09/01/17 documented as of this encounter
--- OUTSIDE RECORDS SUMMARY | 2024-04-16 11:44 | XMS_ITS | Encounter Summary ---
Author Organization [facility] Address [facility] [place] [address] Care Team Providers Care Construction Job Cost Estimator Name Role Phone Mickie Byrne Primary Care Provider [phone] Reason for Visit * Reason Onset Date Comments Pre Procedure Call 07/24/2019 Encounter Details Date Type Department Care Team (Late st Contact Info) Description 07/24/2019 Telephone Dermatology at [facility] [address] [place] [id number] Natalee Bobby CMA Pre Procedure Call Social History Tobacco Use Types Packs/Day Years Used Date Smoking Tobacco: Every Day Cigarettes Smokeless Tobacco: Never Sex and Gender Information Value Date Recorded Sex Assigned at Not on file Gender Identity Not on file Sexual Orientation Not on file documented as of this encounter Miscellaneous Notes * Telephone Encounter - Natalee Bobby CMA - 07/24/2019 3:57 PM EDT Unable to reach patient for Mohs pre-op survey. Message was left on answering machine to return call. Patient is scheduled for Mohs surgery on 07/31/19. documented in this encounter Plan of Treatment Not on file documented as of this encounter Visit Diagnoses Not on filedocumented in this encounter Care Teams Construction Job Cost Estimator Relationship Specialty Start Date End Date Mickie Byrne PA [address] [place] [address] PCP - General Family Medicine 09/02/17 01/01/20 documented as of this encounter
--- OUTSIDE RECORDS SUMMARY | 2024-04-16 11:44 | XMS_ITS | Encounter Summary ---
Author Organization [facility] Address [facility] [place] [address] Care Team Providers Care Shuttle Veneering Supervisor Name Role Phone None Primary Care Provider Unavailabl e Reason for Visit * Reason Comments Skin Check Encounter Details Date Type Department Care Team (Late st Contact Info) Description 01/10/2020 10:30 AM EDT Office Visit Dermatology at [facility] [address] [place] [address] Rohan Osborne MD [facility] [address] [place] [address] Harris angioma; Eczema, unspecified type; Multiple benign nevi; Sebaceous hyperplasia; SK (seborrheic keratosis); History of basal cell carcinoma (BCC) Social History Tobacco Use Types Packs/Day Years Used Date Smoking Tobacco: Every Day Cigarettes Smokeless Tobacco: Never Sex and Gender Information Value Date Recorded Sex Assigned at Not on file Gender Identity Not on file Sexual Orientation Not on file documented as of this encounter Progress Notes * Rohan Rider MD - 01/10/2020 10:30 AM EDT Images from the original note were not included. DERMATOLOGY - ESTABLISHED PATIENT FOLLOW-UP Date of service: 01/10/2020 Uli Barone : 1955, 64 y.o. Chief Complaint: Chief Complaint Patient presents with ??? Skin Check HPI: Uli Barone is a 64 y.o. male last seen by Dr. Rider on 09/26/2019. Mr. Barone returns today for a full skin exam. No specific lesions that are concerning. No spots that are changing colors, itching, or bleeding. Relevant Skin History: - Okay to leave detailed message with results? Yes - Skin cancer (including type): - BCC, left cheek, s/p Mohs 10/2019 - Left posterior shoulder, BCC, s/p Mohs 10/2019 - BCC x 3, left posterior neck, left lateral neck, left lower neck, s/p mohs surgery 07/31/19, Dr. Pop - Nummular eczema Family History: - Melanoma: None ?? Relevant [...] standby during my examination. Diagnosis/Skin findings/Assessment/Plan: # Harris Angiomas- Multiple 0.2-0.4cm bright red, well-demarcated papules on the abdomen - Reassured of benign nature ?? # Stucco Keratosis: On the abdomen, warty stuck on hyperkeratotic papules. Stucco keratoses, sometimes referred to as barnacles, are papular warty lesions resembling seborrheic keratoses that commonly occur on the lower legs and feet of the elderly, particularly in men. There is no racial predilection. They are benign and usually asymptomatic. - Pt reassured ?? # Benign Appearing Nevi: On the trunk and extremities, multiple, 0.3-0.5cm, medium-brown, evenly-pigmented macules and papules. - Reassurance, discussed importance of ABCDE's and monthly self exams # Eczema ??-??much improved since last visit, subtle ill defined pink patches on the lower legs, significantly improved from prior. -??Continue Rx: Triamcinolone 0.1% ointment (454g)??apply twice daily??to affected areas of the body??for 14??days, then take 1 week off, repeat as needed. - Discussed risks of prolonged topical corticosteroid use including atrophy, striae, hypopigmentation, tachyphylaxsis. ??Instructed to avoid ??face, intertriginous, or other thin-skinned highly penetrable areas (eg, the perineum, axillae). - Recommend??sensitive skin care:??Dove fragrance free bar soap (folds/feet only), Cerave??SA cream/Vanicream/Aveeno daily moisturizer within a few minutes of getting out of shower,??emphasized the importance of using a moisturizer every single day even when he is not itchy,??lukewarm showers # Blue Nevus - 2 mm dark blue to black sharply demarcated papule on the right back. - Benign. Pt reassured. - Recheck in 3 months. # Sebaceous Hyperplasia - 2 yellow papules with crown of thorns appearance on the right cheek, - Recheck in 3 months. - No treatment indicated today. RTC: 3 months for full skin exam or sooner for new or worsening spots of concern Note initiated by LILLY Llamas. I, LILLY Llamas, have performed the documentation for this encounter in the presence of and acting as a scribe for Rohan Rider MD. I performed the services which were documented by the scribe, and I agree with the accuracy of the documentation in this encounter. Rohan Rider MD Reviewed and signed by: Rohan Rider MD Resident in Dermatology [facility] Patient seen and evaluated with staff robotics specialist: Eduardo Pena MD Department of Dermatology [facility] * Eduardo Pena MD - 01/10/2020 10:30 AM EDT I directly supervised the Dermatology resident during this office visit. The resident presented thehistory and physical exam to me. I then saw and examined this patient with the resident. We reviewed the history and pertinent details and I confirmed the physical findings. I agree with the details of the history and physical exam as documented in the resident's note. EDUARDO PENA MD Staff Physician documented in this encounter Plan of Treatment Not on file documented as of this encounter Visit Diagnoses Diagnosis Harris angioma Nevus, non-neoplastic Eczema, unspecified type Multiple benign nevi Benign neoplasm of skin, site unspecified Sebaceous hyperplasia Other specified disease of sebaceous glands SK (seborrheic keratosis) Other seborrheic keratosis History of basal cell carcinoma (BCC) documented in this encounter Care Teams Shuttle Veneering Supervisor Relationship Specialty Start Date End Date None None PCP - General 01/10/20 documented as of this encounter
--- OUTSIDE RECORDS SUMMARY | 2024-04-16 11:44 | XMS_ITS | Encounter Summary ---
Author Organization [facility] Address [facility] [place] [address] Care Team Providers Care Emt B Name Role Phone Mickie Byrne Primary Care Provider [phone] Reason for Visit * Reason Comments Eczema Encounter Details Date Type Department Care Team (Late st Contact Info) Description 06/01/2018 10:00 AM EST Office Visit Dermatology at [facility] [address] [place] [address] Luz Maria Richardson MD [facility] [address] [address] Missy Azevedo PA [facility] [address] [place] [address] Nummular dermatitis Social History Tobacco Use Types Packs/Day Years Used Date Smoking Tobacco: Every Day Cigarettes Smokeless Tobacco: Never Sex and Gender Information Value Date Recorded Sex Assigned at Not on file Gender Identity Not on file Sexual Orientation Not on file documented as of this encounter Patient Instructions * Patient Instructions* Maria Del Carmen Grier - 06/01/2018 10:00 AM EST Images from the original note were not included. Recommendations: - CeraVe moisturizing cream documented in this encounter Progress Notes * Missy Azevedo PA - 06/01/2018 10:00 AM EST DERMATOLOGY - ESTABLISHED PATIENT NOTE Date of service: 06/01/2018 Uli Barone : 1955, 63 y.o. CC: Chief Complaint Patient presents with ??? Eczema HPI: Uli Barone is a 63 y.o. male last seen by myself on 11/29/2017. Patient is here for a follow up on eczematous dermatitis of the bilateral hands and anterior lower legs, which he has been treating by alternating between triamcinolone and betamethasone ointment. Patient reports he has noticed great improvement since his last visit. He has not used his creams in several months because he isn't itchy and can use his hands for work without a problem (he is a contractor/builder). Relevant Skin History: - Okay to leave detailed message with results? Yes - Nummular eczema Family History: Melanoma: None Relevant Social History: - Ramirez Medications: Current Outpatient Medications Medication Sig Dispense Refill ??? CHANTIX STARTING MONTH BOX 0.5 mg (11)- 1 mg (42) Tablets, Dose Pack ??? lisinopril (PRINIVIL;ZESTRIL) 20 mg Tablet ??? cetirizine (ZYRTEC) 10 mg Tablet ??? triamcinolone (KENALOG) 0.1 % Ointment After 2 weeks of augmented betamethasone only, apply to itchy/affected areas on the body twice daily on week days (Mon-Fri) 80 g 2 ??? augmented betamethasone dipropionate (DIPROLENE) 0.05 % Ointment Apply to itchy/affected areas on the body twice daily for 2 weeks. Then apply twice daily on weekends only (Sat-Sun) 50 g 3 No current facility-administered medications for this visit. Allergies: No Known Allergies Review of Systems: - General: Feels well. - Skin: No other skin concerns. Examination: - Constitutional: Patient was alert, well-appearing and in no noticeable distress. - Skin: An examination of the hands, arms, and legs was performed. Diagnosis/Skin findings/Assessment/Plan: 1. Eczematous dermatitis, venous stasis dermatitis ?contact allergy - Bilateral dorsal hands and shins: Demarcated eczematous plaques. ?impetiginization - Recommended patient wear compression stockings daily, especially during winter time, and elevate the legs when possible. - Recommended patient moisturize after bathing with CeraVe moisturizing cream. - Refill Rx: Augmented betamethasone ointment - Apply to affected areas on the trunk and extremities twice daily on weekends only (Sat-Sun). Do not apply to the face, groin, or armpits. For flares, apply twice daily for up to 2 weeks, then take 1 week off. - Continue treating with triamcinolone 0.01% ointment. Apply to affected areas on the trunk and extremities twice daily on weekdays (Mon-Fri). - Rx: Mupirocin 2% ointment - Apply to crusty areas on the hands and lower legs twice daily. - Can also stop treating with triamcinolone during the week and only treat with betamethasone on weekends. LOS: [id number] RTC: 9 months for eczema follow up, sooner if needed. Routed for scheduling. Note initiated by Nicole Almanza CMA. I, Maria Del Carmen Grier, have performed the documentation for this encounter in the presence of and acting as a scribe for Missy Azevedo PA-C (Bri). I performed the services which were documented by the scribe, and I agree with the accuracy of the documentation in this encounter. Missy Azevedo PA-C (Bri) Reviewed and signed by Missy Azevedo PA-C [facility] Patient seen in conjunction with staff ointment mill tender: Luz Maria Richardson MD Section of Dermatology [facility] Luz Maria De Dios MD - 06/01/2018 10:00 AM EST Patient seen and examined with Tita Azevedo PA-C. We reviewed the patient's history. I personallyexamined the patient. We discussed the assessment and plan. Contact vs irritant dermatitis much improved. Pt happy with status. Warned re importance of maintaining sensitive skin care routine and to notify us if any worsening. Patient seen in conjunction with Missy Azevedo PA-C (Bri) Signed by: Luz Maria Richardson MD Section of Dermatology [facility] documented in this encounter Plan of Treatment Not on file documented as of this encounter Visit Diagnoses Diagnosis Nummular dermatitis Contact dermatitis and other eczema, due to unspecified cause documented in this encounter Care Teams Emt B Relationship Specialty Start Date End Date Mickie Byrne PA [address] [place] [address] PCP - General Family Medicine 09/02/17 01/01/20 documented as of this encounter
--- OUTSIDE RECORDS SUMMARY | 2024-04-16 11:44 | XMS_ITS | Encounter Summary ---
Author Organization [facility] Address [facility] [place] [address] Care Team Providers Care Yard Inspector Name Role Phone Mickie Byrne Primary Care Provider [phone]- [phone] Reason for Visit * Reason Comments Follow-up Encounter Details Date Type Department Care Team (Late st Contact Info) Description 11/29/2017 10:30 AM EDT Office Visit Dermatology at [facility] [address] [place] [address] Connie Colon MD [facility] [address] [address] Missy Azevedo PA [facility] [address] [address] Nummular dermatitis Social History Tobacco Use Types Packs/Day Years Used Date Smoking Tobacco: Every Day Cigarettes Smokeless Tobacco: Never Sex and Gender Information Value Date Recorded Sex Assigned at Not on file Gender Identity Not on file Sexual Orientation Not on file documented as of this encounter Patient Instructions * Patient Instructions* Maria Del Carmen Grier - 11/29/2017 10:30 AM EDT - Continue Augmented betamethasone ointment (stronger steroid) - Apply twice daily on weekends only(Sat-Sun) - Continue Triamcinolone ointment - Apply to itchy/affected areas on the body twice daily on week days (Tue-Fri) documented in this encounter Progress Notes * Missy Azevedo PA - 11/29/2017 10:30 AM EDT DERMATOLOGY - ESTABLISHED PATIENT NOTE Date of service: 11/29/2017 Uli Barone : 1955, 62 y.o. CC: Chief Complaint Patient presents with ??? Follow-up HPI: Uli Barone is a 62 y.o. male last seen by myself on 10/14/17. Patient here for a follow up on eczematous dermatitis of the bilateral hands and anterior lower legs, treating with triamcinolone and betamethasone ointment alternating. Patient feels he has noticed great improvement since last visit. Relevant Skin History: - Okay to leave detailed message with results? Yes - Nummular eczema Family History: Melanoma: None Relevant Social History: - Ramirez Medications: Current Outpatient Prescriptions Medication Sig Dispense Refill ??? lisinopril (PRINIVIL;ZESTRIL) 20 mg Tablet ??? [...] - Skin: An examination of the hands, legs, and arms was performed. Diagnosis/Skin findings/Assessment/Plan: 1. Eczematous dermatitis, venous stasis dermatitis ?contact allergy - Bilateral dorsal hands: Demarcated eczematous plaques. Bilateral shins: PIH with subtle eczematous changes and petechiae. - Recommended patient wear compression stockings daily, especially during winter time, and elevate the legs when possible. - Continue Augmented betamethasone ointment - Apply twice daily on weekends only (Sat-Sun) - Continue Triamcinolone ointment - Apply to itchy/affected areas on the body twice daily on week days (Mon-Fri) - Can also stop treating with Triamcinolone during the week and only treat with betamethasone on weekends. LOS: [id number] RTC: 6 months for eczema follow up. Scheduled upon exiting. Note initiated by JUANCARLOS SONG. I, Maria Del Carmen Grier, have performed the documentation for this encounter in the presence of and acting as a scribe for Missy Azevedo PA-C (Bri). I performed the services which were documented by the scribe, and I agree with the accuracy of the documentation in this encounter. Missy Azevedo PA-C (Bri) Reviewed and signed by Missy Azevedo PA-C [facility] Patient seen in conjunction with staff retail support specialist: Connie Colon MD Section of Dermatology [facility] * Connie Colon MD - 11/29/2017 10:30 AM EDT Patient seen and examined. Scattered pink scaly papules and plaques. Scattered PIH on shins c/w improved eczematous dermatitis. Discussed sensitive skin care regimen and continued topical steroid use. Patient seen in conjunction with Missy Azevedo PA-C (Bri) Signed by: CONNIE COLON MD Section of Dermatology [facility] documented in this encounter Plan of Treatment Not on file documented as of this encounter Visit Diagnoses Diagnosis Nummular dermatitis Contact dermatitis and other eczema, due to unspecified cause documented in this encounter Care Teams Yard Inspector Relationship Specialty Start Date End Date Mickie Byrne PA [address] [place] [address] PCP - General Family Medicine 09/02/17 01/01/20 documented as of this encounter
--- OUTSIDE RECORDS SUMMARY | 2024-04-16 11:44 | XMS_ITS | Encounter Summary ---
Author Organization [facility] [place] [address] Care Team Providers Care Electromechanical Technologist Name Role Phone Mickie Byrne Primary Care Provider [phone]- [phone] Encounter Details Date Type Department Care Team (Late st Contact Info) Description 07/26/2019 Telephone Dermatology at [facility] [address] [place] [id number] Radha Mccarty RN Social History Tobacco Use Types Packs/Day Years Used Date Smoking Tobacco: Every Day Cigarettes Smokeless Tobacco: Never Sex and Gender Information Value Date Recorded Sex Assigned at Not on file Gender Identity Not on file Sexual Orientation Not on file documented as of this encounter Miscellaneous Notes * Telephone Encounter - Radha Mccarty RN - 07/26/2019 12:21 PM EDT Returned patient's call. Pre-operative questionnaire has already been completed for Mohs surgery. No further questions. Radha Mccarty RN documented in this encounter Plan of Treatment Not on file documented as of this encounter Visit Diagnoses Not on filedocumented in this encounter Care Teams Electromechanical Technologist Relationship Specialty Start Date End Date Mickie Byrne PA [address] [place] [address] PCP - General Family Medicine 09/02/17 01/01/20 documented as of this encounter
--- OUTSIDE RECORDS SUMMARY | 2024-04-16 11:44 | XMS_ITS | Encounter Summary ---
Author Organization [facility] Address [facility] [place] [address] Care Team Providers Care Workforce Development Specialist Name Role Phone None Primary Care Provider Unavailabl e Reason for Visit * Reason Comments Skin Check Encounter Details Date Type Department Care Team (Late st Contact Info) Description 04/15/2020 10:00 AM EST Office Visit Dermatology at [facility] [address] [place] [address] Rohan Osborne MD [facility] [place] [address] Eczema, unspecified type; Harris angioma; Multiple benign nevi; SK (seborrheic keratosis); Neoplasm of uncertain behavior of skin; AK (actinic keratosis); Stucco keratoses; Actinic keratoses Social History Tobacco Use Types Packs/Day Years Used Date Smoking Tobacco: Every Day Cigarettes Smokeless Tobacco: Never Sex and Gender Information Value Date Recorded Sex Assigned at Not on file Gender Identity Not on file Sexual Orientation Not on file documented as of this encounter Progress Notes * Rohan Rider MD - 04/15/2020 10:00 AM EST Images from the original note were not included. DERMATOLOGY - ESTABLISHED PATIENT FOLLOW-UP Date of service: 04/15/2020 Uli Barone : 1955, 65 y.o. Chief Complaint: Chief Complaint Patient presents with ??? Skin Check HPI: Uli Barone is a 65 y.o. male last seen by myself on 01/10/2020. Mr. Barone returns today for a full skin exam. He has not noted any new, growing, changing, bleeding, painful or otherwise symptomatic moles or other lesions. He has not noted any changes in any preexisting lesions. Relevant Skin History: - Okay to leave detailed message with results? Yes - Skin cancer (including type): - BCC, left cheek, s/p Mohs 10/2019 - Left posterior shoulder, BCC, s/p Mohs 10/2019 -??BCC x 3, left posterior neck, left lateral neck, left lower neck, s/p mohs surgery 07/31/19, Dr. Pop - Nummular eczema ?? Family History: -??Melanoma: None ?? Relevant Social History: - Ramirez [...] on standby during my examination. Diagnosis/Skin findings/Assessment/Plan: #. Neoplasm of Uncertain Behavior - 1 cm think pink plaque adjacent to a sclerotic white plaque. DDx: BCC vs AK vs SCC - After review of risks and benefits, joint decision made to pursue shave biopsy today. Procedure Note: Procedure: Shave biopsy Location: left amish The patient's consent was obtained. Risk of infection, scarring, nerve damage, pigment change, numbness, incomplete removal, recurrence, bleeding, pain and uncommonly so, allergic reaction to anesthesia were all reviewed. Alcohol preparation was used. Anesthesia obtained with 1% lidocaine with epinephrine. A shave biopsy was obtained and the specimen was sent to pathology for histologic evaluation. Hemostasis obtained. (AlCl and/or electrocautery). Vaseline and bandaid were applied. Wound care was reviewed.There were no complications; the pt. tolerated the procedure well. ?? #. Actinic Keratoses - 0.2-0.3cm scaly irregular pink papule(s) located on right amish and left brow. - Discussed treatment options with patient, including cryotherapy and efudex - Joint decision to pursue LN2 x 2 to lesion. Advised to return if lesion does not resolve. Discussed etiology and patient agreed for cryotherapy Procedure Note: Procedure: Destruction of lesions with cryotherapy. Number: 2 Location: as above Discussed procedure and expectations including risks (including risk of hypopigmentation) and benefits. Verbal consent obtained. Frozen with LN2, 15-30 second thaw time, TWICE. There were no complications; the patient tolerated the procedure well. Post-procedure expectations and wound care were reviewed. #??Harris Angiomas- Multiple 0.2-0.4cm bright red, well-demarcated papules??on the abdomen - Reassured of benign nature ?? #??Stucco Keratosis: On the??abdomen, warty stuck on hyperkeratotic papules. Stucco keratoses, sometimes referred to as barnacles, are papular warty lesions resembling seborrheic keratoses that commonly occur on the lower legs and feet of the elderly, particularly in men. There is no racial predilection. They are benign and usually asymptomatic. - Pt reassured ?? # Benign Appearing Nevi:??On the trunk and extremities,??multiple, 0.3-0.5cm, medium-brown, evenly-pigmented macules and papules. ?? - Reassurance, discussed importance of ABCDE's and monthly self exams ?? # Nummular Eczema ??-??subtle ill defined pink patches on the lower legs. -??Rx: Triamcinolone 0.1% ointment (80g)??apply twice daily??to affected areas of the body??for 14??days, then take 1 week off, repeat as needed. - Recommend??sensitive skin care:??Dove fragrance free bar soap (folds/feet only), Cerave??SA??cream/Vanicream/Aveeno daily moisturizer within a few minutes of getting out of shower,??emphasized the importance of using a moisturizer every single day even when he is not itchy,??lukewarm showers. #. History of Non-Melanoma skin cancer: at sights above, well healed scars. - No clinical evidence of reoccurrence today. RTC: 6 month FSE, recall placed The following photos were obtained with patient consent: Note initiated by LILLY Gonzalez. I, LILLY Gonzaelz, have performed the documentation for this encounter in the presence of and acting as a scribe for Rohan Rider MD. I performed the services which were documented by the scribe, and I agree with the accuracy of the documentation in this encounter. Rohan Rider MD Reviewed and signed by: Rohan Rider MD Resident in Dermatology [facility] Patient seen and evaluated with staff superintendent construction: Connie Colon MD Department of Dermatology [facility] * Connie Colon MD - 04/15/2020 10:00 AM EST I directly supervised Dr. Rider during this office visit. Dr. Rider presented the history and physical exam to me. I then saw and examined this patient with Dr. Rider . We reviewed the history and pertinent details and I confirmed the physical findings. I agree with the details of the historyand physical exam as documented in Dr. Rider's note. CONNIE COLON MD Staff Physician * Rohan Rider MD - 04/15/2020 10:00 AM EST Called patient, unable to reach, left informing him this is another BCC as expected. [facility] I discussed this plan in advance with the patient at the time of his appointment. DIAGNOSIS Left amish, skin shave biopsy: - ??Basal cell carcinoma, superficial and early nodular patterns, ?present at the ??peripheral and deep specimen edges documented in this encounter Plan of Treatment Not on file documented as of this encounter Procedures Procedure Name Priority Date/Time Associated Diagnosis Comments SPECIMEN TO PATHOLOGY Routine 04/15/2020 11:10 AM EST Neoplasm of uncertain behavior of skin SURGICAL PATHOLOGY REPORT Routine 04/15/2020 10:49 AM EST documented in this encounter Results * Specimen to Pathology (04/15/2020 11:10 AM EST) AP Specimen 04/15/2020 11:1 0 AM EST 04/15/2020 4:05 PM EST Narrative [facility] - 04/15/2020 4:06 PM EST Specimen requisition ordered. ??Separate Pathology report to follow Resulting Agency Comment Spec In Lab Connie Colon MD PATHOLOGY/CYTOLOGY O RDERABLES [facility] [place] [address] * Surgical Pathology Report (04/15/2020 10:49 AM EST) Final Diagnosis [id number] ? Location: [facility] The signing pathologist has (i) examined the relevant preparation(s) for the specimen(s) and (ii) rendered or confirmed the diagnosis(es). . ?Surgical Pathology DIAGNOSIS Left amish, skin shave biopsy: - ??Basal cell carcinoma, superficial and early nodular patterns, ?present at the peripheral and deep specimen edges Electronically signed by: ??Asmita Tejada MD Verified: ??04/17/2020 ?Dermatopathol ogist Performed at: ??-[facility] – [place], [place] Dept. of Pathology, [place], [place] SPECIMEN(S) SUBMITTED A - left amish, skin shave biopsy (1) CLINICAL INFORMATION BCC vs. AK vs. SCC: 1 cm thin pink plaque adjacent to a scar SPECIMEN PROCESSING A - Labeled/Fixativ e: Patient demographics, formalin. Quantity/Size: ??Single, 0.8 x 0.5 x 0.1 cm. Tissue Description: Irregular shave of finely granular, yost-white skin. Sections/Proces sing: Inked, trisected and entirely submitted in 1 cassette labeled A1. ??pps 04/17/2020 5:48 PM EST [facility] SPECIMEN FROM SKIN / Unknown 04/15/2020 10:49 AM EST 04/15/2020 10:49 AM EST Rohan Osborne MD PATHOLOGY/CYTOLOGY ORDERABLES [facility] [place] [place] [address] documented in this encounter Visit Diagnoses Diagnosis Eczema, unspecified type Harris angioma Nevus, non-neoplastic Multiple benign nevi Benign neoplasm of skin, site unspecified SK (seborrheic keratosis) Other seborrheic keratosis Neoplasm of uncertain behavior of skin AK (actinic keratosis) Actinic keratosis Stucco keratoses Actinic keratoses Actinic keratosis documented in this encounter Care Teams Workforce Development Specialist Relationship Specialty Start Date End Date None None PCP - General 01/10/20 documented as of this encounter
--- OUTSIDE RECORDS SUMMARY | 2024-04-16 11:44 | XMS_ITS | Encounter Summary ---
Author [facility] Address [facility] [place] [address] Care Team Providers Care Earth Boring Machine Operator Name Role Phone None Primary Care Provider Unavailabl e Reason for Referral * Consultation (Routine) - Closed Specialty Diagnoses / Procedures Referred By Contac t Referred To Contact Dermatology Diagnoses Basal cell carcinoma (BCC), unspecified site Rohan Osborne MD [facility] [place] [address] [facility] [address] [place] [address] Referral ID Status Reason Start Date Expiration Date V isits Requested Visits Authorized [id number] Closed Consult, Test & Treat 04/18/2020 04/18/2021 1 1 Encounter Details Date Type Department Care Team (Late st Contact Info) Description 04/18/2020 Orders Only Dermatology at [facility] [address] [place] [phone] Rohan Osborne MD [facility] [place] [address] Basal cell carcinoma (BCC), unspecified site Social History Tobacco Use Types Packs/Day Years Used Date Smoking Tobacco: Every Day Cigarettes Smokeless Tobacco: Never Sex and Gender Information Value Date Recorded Sex Assigned at Not on file Gender Identity Not on file Sexual Orientation Not on file documented as of this encounter Plan of Treatment Scheduled Referrals Name Type Priority Associated Diagnoses Orde r Schedule Referral to Dermatology Outpatient Referral Routine Basal cell carcinoma (BCC), unspecified site Ordered: 04/18/2020 documented as of this encounter Visit Diagnoses Diagnosis Basal cell carcinoma (BCC), unspecified site documented in this encounter Care Teams Earth Boring Machine Operator Relationship Specialty Start Date End Date None None PCP - General 01/10/20 documented as of this encounter
--- OUTSIDE RECORDS SUMMARY | 2024-04-16 11:44 | XMS_ITS | Encounter Summary ---
Author Organization [facility] Address [facility] [place] [address] Care Team Providers Care Director Product Development Name Role Phone Darling Gómez MD Primary Care Provider [phone] Reason for Visit * Reason Onset Date Comments Medication Refill 08/24/2010 Encounter Details Date Type Department Care Team (Late st Contact Info) Description 08/24/2010 [place] [address] Yasmani Hartmann III, MD [facility] [address] [place] [address] Dermatitis (Primary Dx) Social History Tobacco Use Types Packs/Day Years Used Date Smoking Tobacco: Never Assessed Sex and Gender Information Value Date Recorded Sex Assigned at Not on file Gender Identity Not on file Sexual Orientation Not on file documented as of this encounter Plan of Treatment Not on file documented as of this encounter Visit Diagnoses Diagnosis Dermatitis- Primary Contact dermatitis and other eczema, due to unspecified cause documented in this encounter Care Teams Director Product Development Relationship Specialty Start Date End Date Darling Gómez MD [facility] [address] [place] [address] [place] [address] PCP - General 06/15/10 09/01/17 documented as of this encounter
--- OUTSIDE RECORDS SUMMARY | 2024-04-16 11:44 | XMS_ITS | Encounter Summary ---
Author Organization [facility] [place] [address] Care Team Providers Care Supervisor Dairy Sanitation Name Role Phone Mickie Byrne Primary Care Provider [phone] Reason for Visit * Reason Onset Date Comments Pre Procedure Call 07/26/2019 Encounter Details Date Type Department Care Team (Late st Contact Info) Description 07/26/2019 Telephone Dermatology at [facility] [address] [place] [address] Ayah Richard CMA Pre Procedure Call Social History Tobacco Use Types Packs/Day Years Used Date Smoking Tobacco: Every Day Cigarettes Smokeless Tobacco: Never Sex and Gender Information Value Date Recorded Sex Assigned at Not on file Gender Identity Not on file Sexual Orientation Not on file documented as of this encounter Miscellaneous Notes * Telephone Encounter - Ayah Richard CMA - 07/26/2019 11:39 AM EDT Mohs consultation and preoperative note (H&P) Patient Name: Uli Barone Age: 64 y.o. Date of : 1955 Today's Date: 07/26/2019 REFERRING PROVIDER: No ref. provider found CC: Mohs micrographic surgery for treatment of a cutaneous tumor HPI: Uli Barone is a 64 y.o. male presenting for biopsy-proven basal cell carcinoma, superficial and nodular location on the left posterior neck, left [...] No Relevant travel history or future plans: none Tobacco use (amount per day, type of tobacco): yes 1 pack daily Do you have any physical limitations that may affect your surgery?: no ALLERGIES: Allergies reviewed MEDICATIONS: Medications reviewed documented in this encounter Plan of Treatment Not on file documented as of this encounter Visit Diagnoses Not on filedocumented in this encounter Care Teams Supervisor Dairy Sanitation Relationship Specialty Start Date End Date Mickie Byrne PA [address] [place] [address] PCP - General Family Medicine 09/02/17 01/01/20 documented as of this encounter
[2024-04-16 15:19] LABS: Hemoglobin A1C 5.6 % (<5.7)
[2024-04-16 15:24] LABS: ALT 44 U/L (16-63); AST 25 U/L (15-37); Alkaline Phosphatase 101 U/L (46-116); Anion Gap 10.2 mmol/L (3-11); BUN 18 mg/dL (7-18); Bilirubin, Total 0.32 mg/dL (0.2-1.0); CO2 25.8 mmol/L (21.0-32.0); Calcium 10.1 mg/dL (8.5-10.1); Calculated LDL 119 mg/dL (<100); Chloride 108 mmol/L (98-107); Cholesterol 217 mg/dL (<200); Estimated GFR 82.49 (mL/min/1.73m2); Glucose 113 mg/dL (74-106); HDL Cholesterol 67 mg/dL (40-60); Potassium 4.1 mmol/L (3.5-5.1); Sodium 144 mmol/L (136-145); Total Protein 7.6 g/dL (6.4-8.2); Triglyceride 159 mg/dL (<150)
== END 2024-04-16 11:42 | disposition home or self-care (01) ==
LOC: NCHCN 11:41
PROVIDERS: PCP Physician Assistant Medical; Visit Provider Physician Assistant Medical
DX: E78.5 Hyperlipidemia, unspecified (principal); R73.9 Hyperglycemia, unspecified
CPT/HCPCS: 80053; 80061; 83036

== ENCOUNTER 2024-11-18 19:33 | Emergency (ER) | payer MEDICARE, SELFPAY ==
[2024-11-18 19:40] VITALS: BP 186/83; PULSE 65; RESP 16; TEMP 36.9; O2SAT 95
--- NOTE | 2024-11-18 20:33 | ED.GENADUL_ITS ---
Discharge Plan Disposition Patient Disposition: Home Discharge Details Clinical Impression: Epistaxis, Elevated blood pressure reading Primary Care Provider: Mickie Byrne ED Provider: Opal Nathan Home Meds and New Rx's Prescriptions: No Action No Known Home Meds Discharge Instructions Instructions: Nosebleeds ED Additional Instructions: Please call your primary care provider first thing in the morning to schedule follow-up appointment within the next week or two. Your blood pressure was very elevated today, I recommend monitoring this closely with your primary care provider I recommend that you use a humidifier at bedside, especially while you are air conditioner is running. Use saline nasal spray to help keep your nasal passages moist. You can apply a thin layer of petroleum jelly/Vaseline to the inside of your nose to help with dryness as well. If you do experience nosebleeds, I recommend tightly pinching your nostrils together and waiting a full 10 minutes, no peeking! Return to emergency care if you develop new uncontrollable nosebleeds, other sources of bleeding such as rectal bleeding or vomiting blood, episodes of dizziness/been like in a pass out, chest pain, shortness of breath, or if you are very worried and need to be rechecked again immediately Referrals: Mickie Byrne PA [Primary Care Provider, Medicine] HPI General Date/Time Provider Initiated Documentation: 11/18/24 19:40 . HPI Narrative: Uli is a 69-year-old male who presents to the emergency department for evaluation of recurrent epistaxis. No current nosebleed at this time nosebleeds began last night, initial episode lasted ~20 minutes, resolved with pressure to the left nare. Experienced five episodes, all on the same side. No other bleeding sources, recent trauma, fevers, chills, chest pain, dyspnea, nausea, or vomiting. Normal bowel and bladder functions. No known heart or lung problems, diabetes, or significant health issues. Drinks alcohol sparingly. Last visited PCP Dr. Mickie Byrne six months ago. No current medications. Similar past incident attributed to hot air exposure in mobile home. Has been using air conditioning a lot over the last couple days due to heat wave. Related Data Home Medications ?Medication ?Instructions ?Recorded ?Confirmed Unknown [No Known Home Meds] 11/18/24 0 11/18/24 Allergies Allergy/AdvReac Type Severity Reaction Status Date / Time No Known Allergies Allergy Unverified 11/18/24 19:43 General Stated Complaint: Epistaxis JORGE: 4 Exam Const General: cooperative, healthy appearing, comfortable and no acute distress Nutritional Appearance: average body habitus Orientation: alert and oriented x3 HENMT Head: normal to inspection General nose exam: external nose normal, nares normal, no nasal discharge and other (superficial abrasion noted in L nare) Face and sinus: normal facial exam Mouth: oral mucosae normal Resp Effort & Inspection: normal respiratory effort and able to speak in complete sentences Skin General skin exam: no rashes or lesions noted Course Vital Signs Vital signs: Vital Signs Temperature 36.9 C 11/18/24 19:40 Pulse 65 11/18/24 19:40 Respiratory Rate 16 11/18/24 19:40 Blood Pressure 186/83 H 11/18/24 19:40 Pulse Oximetry 95 11/18/24 19:40 Temperature 36.9 C 11/18/24 19:40 Temperature Source Oral 11/18/24 19:40 Pulse 65 11/18/24 19:40 Respiratory Rate 16 11/18/24 19:40 Blood Pressure 186/83 H 11/18/24 19:40 Blood Pressure Position Sitting 11/18/24 19:40 Pulse Oximetry 95 11/18/24 19:40 Oxygen Delivery Method Room Air 11/18/24 19:40 Oxygen Flow Rate 0 11/18/24 19:40 Pain Level 0 11/18/24 19:40 Medical Decision Making Initial Assessment: Recurrent epistaxis likely due to dry air from air conditioning. No history of severe liver disease, platelet disorders, or current symptoms consistent with other active bleeding. No red flags concerning for systemic causes/bleeding disorders requiring laboratory workup at this time or trauma requiring x-rays/diagnostic imaging ED Course: - Examined nasal mucosa, noted small scrape with minor ooze in left nare -Silver nitrate applied - Recommended petroleum jelly application inside the nose with Q-tip - Advised pressure to both sides of the nose, lean forward, set timer for 10 minutes without peeking during nosebleed - Suggested saline nasal spray, especially on affected side, a few times daily - Encouraged increasing home humidity Final Assessment: Recurrent epistaxis likely due to dry air. No severe liver disease or platelet disorders. Treatment: petroleum jelly application, saline nasal spray, increasing home humidity. Clinical Impression: - Epistaxis - Elevated blood pressure was noted upon arrival, this did decrease slightly during stay, however recommend close follow-up with PCP for BP management Disposition: - Discharge home, advised to return if new bleeding occurs or nosebleeds are difficult to control. Educated on epistaxis management and red flags indicate need for return to emergency care. Recommend close follow-up with PCP Follow-Up: - Call PCP within next week or two Patient Education: - Instructions on applying pressure during nosebleeds, use of saline nasal spray, and increasing home humidity Patient consented to the use of MARILEE PFSH All Active Problems (Updated 11/18/24 @ 20:38 by Opal Martinez) Elevated blood pressure reading (Acute) Epistaxis (Acute) Asymmetrical sensorineural hearing loss (Acute) Surgical History (Updated 08/13/21 @ 09:49 by Carmen Lozano) History of ankle surgery Social History Smoking/Tobacco Use Status: Current every day Tobacco Type: cigarettes Smoking risk assessment performed?: Yes Alcohol Intake: current Alcohol Intake frequency: a few times a week Alcohol type: beer Drug use: Never Substance use type: does not use Housing: house Do you feel safe at home: Yes Do you feel safe in your relationship?: Yes
[2024-11-18] MEDS: Oxymetazolone 0.05% SPRAY 15 ML BTL NS (21:09)
[2024-11-18 21:45] VITALS: BP 161/75
[2024-11-18 22:10] VITALS: BP 153/81
[2024-11-18] MEDS: Silver Nitrate Stick 1 EACH (22:11)
== END 2024-11-19 01:53 | disposition home or self-care (01) ==
PROVIDERS: Emergency Provider Nurse Practitioner Family; PCP Physician Assistant Medical
DX: R04.0 Epistaxis (principal); R03.0 Elevated blood-pressure reading, without diagnosis of hypertension; F17.210 Nicotine dependence, cigarettes, uncomplicated
CPT/HCPCS: 99283

== ENCOUNTER 2024-11-21 11:27 | Emergency (ER) | payer MEDICARE, SELFPAY ==
[2024-11-21 11:36] VITALS: BP 180/84; PULSE 70; RESP 18; TEMP 36.7; O2SAT 98
[2024-11-21] MEDS: Oxymetazolone 0.05% SPRAY 15 ML BTL NS (13:05)
[2024-11-21 13:58] VITALS: BP 180/84; PULSE 70; RESP 18; TEMP 36.7; O2SAT 98
--- NOTE | 2024-11-21 15:01 | ED.GENADUL_ITS ---
Discharge Plan Disposition Patient Disposition: Home Discharge Details Clinical Impression: Epistaxis Primary Care Provider: Mickie Byrne ED Provider: Doe Mcwilliams Home Meds and New Rx's Prescriptions: No Action No Known Home Meds Discharge Instructions Instructions: Nosebleeds Additional Instructions: Use Afrin 4 squirts in each nostril twice daily for the next 3 days Keep your nose moist otherwise with nasal saline, use a humidifier in your house A referral has been placed for you to follow-up with the ENT for recurrent nosebleeds HPI General Date/Time Provider Initiated Documentation: 11/21/24 12:49 . Limitations to Documentation: no limitations . Information obtained by: patient and old records reviewed . HPI Narrative: 69-year-old gentleman with past medical history of hypertension presents for evaluation of epistaxis. He reports onset of symptoms 5 days ago. Has been having intermittent bleeding. Has been seen in the emergency department during this time and had a silver nitrate stick used to stop his bleeding. He denies any trauma. He reports that he was discharged with Afrin but has not been using it this week. Related Data Home Medications ?Medication ?Instructions ?Recorded ?Confirmed Unknown [No Known Home Meds] 11/18/24 0 11/21/24 Allergies Allergy/AdvReac Type Severity Reaction Status Date / Time No Known Allergies Allergy Unverified 11/21/24 11:39 General Stated Complaint: Epistaxis JORGE: 4 Exam Narrative Exam Narrative: Review of Systems: All systems reviewed & are unremarkable except as noted in HPI and below Well-developed, no acute distress NCAT PERRL, normal conjunctiva No active bleeding, right nare with mucosal edema, left nare with anterior source of bleed but slight oozing, not actively bleeding RRR Unlabored respiratory effort Course Vital Signs Vital signs: Vital Signs Temperature 36.7 C 11/21/24 11:36 Pulse 70 11/21/24 11:36 Respiratory Rate 18 11/21/24 11:36 Blood Pressure 180/84 H 11/21/24 11:36 Pulse Oximetry 98 11/21/24 11:36 Temperature 36.7 C 11/21/24 13:58 Pulse 70 11/21/24 13:58 Respiratory Rate 18 11/21/24 13:58 Blood Pressure 180/84 H 11/21/24 13:58 Pulse Oximetry 98 11/21/24 13:58 Oxygen Delivery Method Room Air 11/21/24 11:36 Oxygen Flow Rate 0 11/21/24 11:36 Pain Level 0 11/21/24 11:36 Medical Decision Making Emergent evaluation of epistaxis. Patient does not have acute ongoing bleeding at this time. He keeps picking at his nose with rubbing it and blowing it which I suspect is contributing to the ongoing symptoms that he is having. He was given Afrin which completely resolved any additional dripping that it was occurring. I do not feel that he would benefit from nasal packing and does not require any cautery at this time. His blood pressure is noted to be elevated and he was advised to follow-up with his doctor regarding any ongoing hypertension. He was advised to use Afrin twice daily for the next 3 days in addition to start using nasal saline. I suspect that being a smoker is also contributing to his recurrent nosebleeds. Has been referred to ENT for follow- up given his ongoing issues. Return precautions advised. PFSH All Active Problems (Updated 11/21/24 @ 13:37 by Doe Mcwilliams MD) Elevated blood pressure reading (Acute) Epistaxis (Acute) Asymmetrical sensorineural hearing loss (Acute) Surgical History (Updated 08/13/21 @ 09:49 by Carmen Lozano) History of ankle surgery Social History Smoking/Tobacco Use Status: Current every day Tobacco Type: cigarettes Smoking risk assessment performed?: Yes Alcohol Intake: current Alcohol Intake frequency: a few times a week Alcohol type: beer Drug use: Never Substance use type: does not use Housing: house Do you feel safe at home: Yes Do you feel safe in your relationship?: Yes
== END 2024-11-21 13:59 | disposition home or self-care (01) ==
PROVIDERS: Emergency Provider Emergency Medicine; PCP Physician Assistant Medical
DX: R04.0 Epistaxis (principal); I10 Essential (primary) hypertension; F17.210 Nicotine dependence, cigarettes, uncomplicated
CPT/HCPCS: 99283; 99282

== ENCOUNTER 2024-12-03 17:53 | Outpatient (REF) | payer MEDICARE, SELFPAY ==
[2024-12-03 16:44] LABS: INR 1.0 (0.9-1.1); Prothrombin Time 10.0 sec (9.1-11.1)
[2024-12-03 18:15] LABS: HCT 43.7 % (40.0-50.0); HGB 14.7 g/dL (13.5-17.5); MCH 30.2 pg (27.0-33.0); MCHC 33.6 % (32.0-36.0); MCV 90 fL (80-95); MPV 9.8 fL (8.0-11.0); Platelet Count 283 10^3/uL (130-400); RBC 4.87 10^6/uL (4.36-5.78); RDW 12.9 % (11.8-14.1); RDW-SD 42.5 fL; WBC 8.31 10^3/uL (4.4-10.8)
== END 2024-12-03 17:54 | disposition home or self-care (01) ==
LOC: NCHCN 17:53
PROVIDERS: PCP Physician Assistant Medical; Visit Provider Physician Assistant Medical
DX: R04.0 Epistaxis (principal)
CPT/HCPCS: 85027; 85610

== ENCOUNTER 2024-12-13 02:03 | Outpatient (CLI) | payer MEDICARE, SELFPAY ==
--- NOTE | 2024-12-13 | DI.CTLCSR_ITS ---
Exam(s) CT CHEST LUNG CANCER SCREEN EXAM: CT CHEST LUNG CANCER SCREEN CLINICAL HISTORY: Smoker F17.210 TECHNIQUE: Imaging Protocol: Axial computed tomography images with coronal and sagittal reformatted images were created and reviewed. Low dose screening protocol. COMPARISON: CR LEFT SHOULDER COMPLETE from 01/10/2017 FINDINGS: Tracheobronchial tree: No bronchiectasis or mucus plugging. Mediastinum and Tonya: No dominant adenopathy or fluid collection. Pulmonary parenchyma: No consolidation or dominant measurable mass. Mild centrilobular emphysematous changes. No significant interstitial changes. Lung Nodules: None. Pleura: No effusion. No pneumothorax. Heart: The heart is not dilated. Minimal coronary artery calcifications are seen. No pericardial effusion. Aorta: Thoracic aorta non-dilated. Mild atherosclerotic changes. Upper abdomen: Unremarkable. Bones: Bridging osteophytes in the spine. Soft Tissues: Unremarkable. IMPRESSION: No suspicious pulmonary nodules. Lung RADS Cat 1 - Negative: No nodules and definitely benign nodules Lung-RADS 1.0 CATEGORIES: Category 0 - Prior chest CT exam(s) being located for comparison. Category 1 - Annual screening in 12 months. No nodules or definitely benign nodules. Category 2 - Annual screening in 12 months. Benign appearance. Nodules with low likelihood of becoming active cancer. Category 3 - 6-month follow-up. Probably benign. Short-term follow-up suggested. Nodules with low likelihood of becoming active cancer. Category 4A - 3-month follow-up and CT/PET if >8 mm in size. Suspicious finding. Findings which require additional testing. Category 4B - Findings which require additional testing and tissue sampling. Category 4X - Category 3 or 4 nodules with additional features or imaging findings that increases the suspicion of malignancy. Modifier S- Potentially clinically significant findings (non lung cancer) RADIATION DOSE DELIVERED: Total DLP DATA REPOSITORY: All CT scans at this facility are submitted to the National Radiology Data Registry (NRDR) Dose Index Registry (DIR) with the [employer] (A[employer]). RADIATION OPTIMIZATION: All CT scans at this facility use at least one of these dose optimization techniques: automated exposure control; mA and/or kV adjustment per patient size (includes targeted exams where dose is matched to clinical indication); or iterative reconstruction.
== END 2024-12-13 02:23 ==
LOC: DI 02:04
PROVIDERS: PCP Physician Assistant Medical; Visit Provider Physician Assistant Medical
DX: Z12.2 Encounter for screening for malignant neoplasm of respiratory organs (principal); F17.210 Nicotine dependence, cigarettes, uncomplicated
CPT/HCPCS: 71271

== ENCOUNTER → 2025-05-07 00:46 | Outpatient (CLI) | payer MEDICARE, SELFPAY ==
--- NOTE | 2025-05-07 | DI.US_ITS ---
Exam(s) US AAA SCREENING EXAM: US AAA SCREENING CLINICAL HISTORY: SCREENING AAA, TOBACCO DEPENDENCE, F17.200 COMPARISON: No exams were available for comparison FINDINGS: There is no evidence of abdominal aortic aneurysm. Maximum diameter of the abdominal aorta is 2.8 cm, proximally and there is normal distal tapering of the aorta evident. There is also no significant enlargement of the visualized common iliac arteries. IMPRESSION: No evidence of abdominal aortic aneurysm. DATA REPOSITORY:
== END ==
LOC: DI 00:46
PROVIDERS: PCP Physician Assistant Medical; Visit Provider Physician Assistant Medical
DX: F17.200 Nicotine dependence, unspecified, uncomplicated (principal)
CPT/HCPCS: 76706